=== PATIENT | female | born 1950 | race Caucasian/White ===

== ENCOUNTER 2016-05-27 15:08 | Inpatient (IN) | payer MEDICARE, OTHER ==
[~2016-05-27] VITALS: Ht 170.2 cm; Wt 78.8 kg
[2016-05-27] MEDS ORDERED: SODIUM CHLORIDE 0.9% 1,000 ML IV ONE (16:05)
[2016-05-27 17:08] LABS: Basophils # (auto) 0.1 uL; Basophils % (auto) 0.5 % (0.0-2.0); DEFINITIVE VIEW TRANSMISSION; Eosinophils # (auto) 0 uL; Eosinophils % (auto) 0.1 % (0.0-7.0); Hemoglobin 12.4 g/dL (12.2-16.2); Lymphocytes # (auto) 2.4 uL; Lymphocytes % (auto) 17.7 % (10.0-50.0); Mean Corpuscular Hgb Conc. 31.9 g/dL (32.0-36.0); Mean Corpuscular Volume 81.6 fL (80.0-100.0); Mean Platelet Volume 8.6 fL (7.4-10.4); Monocytes # (auto) 0.4 uL; Monocytes % (auto) 2.7 % (0.0-12.0); Neutrophils # (auto) 10.7 uL; Platelet Count (auto) 393 10^3/uL (140-450); Red Cell Distribution Width 23.5 % (11.6-16.0); White Blood Cell 13.5 10^3/uL (4.4-10.8)
[2016-05-27 17:21] LABS: Anisocytosis Moderate; Hypochromia Slight; Ovalocytes FEW; Platelet Estimate Adequate; Stomatocytes Moderate; Tear Drop Cells FEW
[2016-05-27 17:30] LABS: Albumin 0.4 g/dL (3.4-5.0); BUN/Creatinine Ratio 16.8; Bilirubin, Total 0.3 mg/dL (0.2-1.0); Calcium 6.2 mg/dL (8.5-10.1); Magnesium 2.3 mg/dL (1.6-2.6); Potassium 3.6 mmol/L (3.5-5.1); Total Protein 3.9 g/dL (6.4-8.2)
[2016-05-27 18:48] LABS: INR 1.14 (0.9-1.15); Prothrombin Time 11.7 sec (9.37-12.3)
[2016-05-27 20:24] LABS: Urine Bilirubin Negative (Negative); Urine Blood Negative /uL (Negative); Urine Color Yellow (Yellow); Urine Glucose Normal (Normal); Urine Ketone Negative (Negative); Urine Nitrite Negative (Negative); Urine RBC <1 /hpf (0 - 4)
[2016-05-27 20:31] LABS: Urine Hyaline Cast Moderate /lpf (0 - 2); Urine Mucus Few (None Seen); Urine Squamous Epithelial Cell Moderate /hpf (<5)
[2016-05-28] MEDS ORDERED: SODIUM CHLORIDE 0.9% 1,000 ML IV SCH (01:28)
[2016-05-28] MEDS ORDERED: DIPHENOXYLATE W/ATROPINE 2.5 MG TAB PO PRN (01:30)
[2016-05-28] MEDS ORDERED: ONDANSETRON HCL 4 MG/2 ML VIAL IV PRN (01:30)
[2016-05-28] MEDS ORDERED: ONDANSETRON HCL 4 MG/2 ML VIAL ONE (01:39)
[2016-05-28] MEDS ORDERED: ALBUMIN 25% 100 ML IV ONE (01:45)
[2016-05-28 02:25] VITALS: BP_SYST 119; BP_DIAS 60; BP_DIAS 66
[2016-05-28 05:26] VITALS: BP 106/57
[2016-05-28] MEDS ORDERED: PERCOT PO (05:26)
[2016-05-28] MEDS ORDERED: ASPI-378 PO (05:26)
[2016-05-28] MEDS ORDERED: LIDO5DIS21 TOP (05:26)
[2016-05-28] MEDS ORDERED: MONT5CHW17 PO (05:26)
[2016-05-28] MEDS ORDERED: DIPH2.5T73 PO (05:26)
[2016-05-28] MEDS ORDERED: EPIN1INJ26 IV (05:26)
[2016-05-28] MEDS ORDERED: ASPI-407 PO (05:26)
[2016-05-28] MEDS ORDERED: FLUT250M2 INH (05:26)
[2016-05-28] MEDS ORDERED: DILT180C62 PO (05:26)
[2016-05-28] MEDS ORDERED: DESL5TAB29 PO (05:26)
[2016-05-28] MEDS ORDERED: SUMA100T2 PO (05:26)
[2016-05-28] MEDS ORDERED: CEL100T PO (05:26)
[2016-05-28] MEDS ORDERED: [UNRECOGNIZED DRUG - CODE] IJ (05:26)
[2016-05-28] MEDS ORDERED: FEXO-42 PO (05:26)
[2016-05-28] MEDS ORDERED: [UNRECOGNIZED DRUG - CODE] IM (05:26)
[2016-05-28] MEDS ORDERED: GABA250S2 PO (05:26)
[2016-05-28] MEDS ORDERED: LANS15CA21 PO (05:26)
[2016-05-28] MEDS: GABAPENTIN 300 MG CAP PO SCH ×3 (06:01→22:38)
[2016-05-28 09:00] VITALS: BP 117/70
[2016-05-28] MEDS: MONTELUKAST SODIUM 10 MG TAB PO SCH (10:04)
[2016-05-28] MEDS: FAMOTIDINE 20 MG TAB PO SCH ×2 (10:05→22:37)
[2016-05-28] MEDS: DILTIAZEM HCL 180MG ER CAP PO SCH (10:05)
[2016-05-28] MEDS: ASPirin 81 mg TAB PO SCH (10:05)
[2016-05-28] MEDS: CELECOXIB 100 MG CAP PO SCH (10:05)
[2016-05-28] MEDS: ENOXAPARIN SOD 40 MG/0.4 ML SYRINGE SC SCH (10:06)
[2016-05-28] MEDS: ESTROGEN CONJ 0.3 MG TAB PO SCH (10:46)
[2016-05-28] MEDS: METHOCARBAMOL 500 MG TAB PO PRN ×2 (10:46→17:10)
[2016-05-28] MEDS: OXYCODONE W/ ACETAMINOPHEN 5/325MG TABLET PO PRN ×3 (10:49→20:59)
[2016-05-28 13:00] VITALS: BP 111/62
[2016-05-28] MEDS ORDERED: methylPREDNISolone SOD SUCC 125 MG/2 ML VL IM PRN (15:00)
[2016-05-28] MEDS ORDERED: diphenhdrAMINE HCL 50 MG/1 ML VL IV PRN (15:00)
[2016-05-28] MEDS: ALBUMIN 25% 100 ML IV SCH (16:00)
[2016-05-28 16:59] VITALS: BP 108/65
[2016-05-28 18:56] LABS: Temperature: 22.7 C (20.0-25.0)
[2016-05-28 21:55] VITALS: BP 115/66
[2016-05-29] MEDS: ALBUMIN 25% 100 ML IV SCH ×2 (00:25→09:24)
[2016-05-29 05:57] VITALS: BP 121/75
[2016-05-29 06:09] LABS: Albumin 2.4 g/dL (3.4-5.0); BUN/Creatinine Ratio 17.6; Calcium 6.7 mg/dL (8.5-10.1); Potassium 3.2 mmol/L (3.5-5.1)
[2016-05-29 06:12] LABS: Bilirubin, Total 0.6 mg/dL (0.2-1.0); Total Protein 4.3 g/dL (6.4-8.2)
[2016-05-29 06:17] LABS: Basophils # (auto) 0 uL; Basophils % (auto) 0.3 % (0.0-2.0); DEFINITIVE VIEW TRANSMISSION; Eosinophils # (auto) 0 uL; Hemoglobin 9.7 g/dL (12.2-16.2); Lymphocytes # (auto) 2.4 uL; Lymphocytes % (auto) 27.8 % (10.0-50.0); Mean Corpuscular Hemoglobin 26.1 pg (28.0-32.0); Mean Corpuscular Hgb Conc. 31.3 g/dL (32.0-36.0); Mean Corpuscular Volume 83.3 fL (80.0-100.0); Mean Platelet Volume 8.8 fL (7.4-10.4); Monocytes # (auto) 0.3 uL; Monocytes % (auto) 3.8 % (0.0-12.0); Neutrophils # (auto) 5.8 uL; Neutrophils % (auto) 68.1 % (37.0-80.0); Platelet Count (auto) 189 10^3/uL (140-450); White Blood Cell 8.5 10^3/uL (4.4-10.8)
[2016-05-29 06:21] LABS: Red Cell Distribution Width 22.9 % (11.6-16.0)
[2016-05-29 06:23] LABS: Anisocytosis Moderate; Hypochromia Slight; Platelet Estimate Adequate
[2016-05-29 06:24] LABS: Tear Drop Cells FEW
[2016-05-29 09:00] VITALS: BP 126/71
[2016-05-29] MEDS: ENOXAPARIN SOD 40 MG/0.4 ML SYRINGE SC SCH (09:24)
[2016-05-29] MEDS: CELECOXIB 100 MG CAP PO SCH (09:25)
[2016-05-29] MEDS: MONTELUKAST SODIUM 10 MG TAB PO SCH (09:25)
[2016-05-29] MEDS: FAMOTIDINE 20 MG TAB PO SCH ×2 (09:25→22:26)
[2016-05-29] MEDS: ASPirin 81 mg TAB PO SCH (09:25)
[2016-05-29] MEDS: DILTIAZEM HCL 180MG ER CAP PO SCH (09:33)
[2016-05-29] MEDS: ESTROGEN CONJ 0.3 MG TAB PO SCH (10:00)
[2016-05-29 13:00] VITALS: BP_SYST 122; BP_SYST 129; BP_DIAS 58; BP_DIAS 75
[2016-05-29 13:26] LABS: BUN/Creatinine Ratio 16.7; Calcium 6.9 mg/dL (8.5-10.1)
[2016-05-29] MEDS ORDERED: POTASSIUM CHL 20 Meq TABLET PO ONE (14:00)
[2016-05-29] MEDS ORDERED: LACTULOSE 20Gm/30ML SOLN PO ONE (14:00)
[2016-05-29] MEDS: D5W 5% 1,000 ML IV SCH (14:34)
[2016-05-29] MEDS: GABAPENTIN 300 MG CAP PO SCH ×2 (14:34→22:26)
[2016-05-29] MEDS: PROMETHAZINE HCL 25 MG/ML 1ML IV PRN (14:58)
[2016-05-29] MEDS ORDERED: POTASSIUM CHLORIDE 20 MEQ, LIDOCAINE 1% (LOCAL ANESTH.) 2 ML in SODIUM CHL 0.9% 100 ML IV ONE (15:00)
[2016-05-29 17:00] VITALS: BP 122/58
[2016-05-29 22:02] VITALS: BP 135/68
[2016-05-29] MEDS: LACTULOSE 20Gm/30ML SOLN PO SCH (22:26)
[2016-05-30] MEDS: D5W 5% 1,000 ML IV SCH ×3 (01:44→20:59)
[2016-05-30 05:34] VITALS: BP 105/64
[2016-05-30] MEDS: GABAPENTIN 300 MG CAP PO SCH ×3 (06:30→22:38)
[2016-05-30 09:00] VITALS: BP 129/73
[2016-05-30] MEDS: ESTROGEN CONJ 0.3 MG TAB PO SCH (10:00)
[2016-05-30] MEDS: LACTULOSE 20Gm/30ML SOLN PO SCH (10:00)
[2016-05-30] MEDS: CELECOXIB 100 MG CAP PO SCH (11:06)
[2016-05-30] MEDS: MONTELUKAST SODIUM 10 MG TAB PO SCH (11:07)
[2016-05-30] MEDS: ASPirin 81 mg TAB PO SCH (11:07)
[2016-05-30] MEDS: DILTIAZEM HCL 180MG ER CAP PO SCH (11:08)
[2016-05-30] MEDS: ENOXAPARIN SOD 40 MG/0.4 ML SYRINGE SC SCH (11:09)
[2016-05-30] MEDS: FAMOTIDINE 20 MG TAB PO SCH ×2 (11:09→22:38)
[2016-05-30 13:00] VITALS: BP 147/80
[2016-05-30 13:07] LABS: Sjogren's Anti-SS-A Antibody <0.2 AI (0.0-0.9)
[2016-05-30 13:31] LABS: BUN/Creatinine Ratio 7.1; Calcium 7.2 mg/dL (8.5-10.1); Potassium 3.3 mmol/L (3.5-5.1)
[2016-05-30] MEDS: FREE WATER PO SCH ×3 (14:00→22:00)
[2016-05-30] MEDS ORDERED: POTASSIUM CHL 20 Meq TABLET PO ONE (14:30)
[2016-05-30] MEDS ORDERED: POTASSIUM PHOSPHATE 44 MEQ in SODIUM CHL 0.9% 250 ML IV ONE (16:15)
[2016-05-30 16:50] VITALS: BP 135/76
[2016-05-30] MEDS ORDERED: ACETAMINOPHEN 325 MG TAB PO PRN (19:00)
[2016-05-30 21:00] VITALS: BP 128/94
[2016-05-30] MEDS: OXYCODONE W/ ACETAMINOPHEN 5/325MG TABLET PO PRN (22:38)
[2016-05-31] VITALS (7 sets, daily range): BP systolic 122–141; BP diastolic 69–85
[2016-05-31] MEDS: FREE WATER PO SCH ×4 (02:00→17:40)
[2016-05-31] MEDS: D5W 5% 1,000 ML IV SCH (05:48)
[2016-05-31] MEDS: GABAPENTIN 300 MG CAP PO SCH ×3 (06:13→22:26)
[2016-05-31 06:25] LABS: Basophils % (auto) 0.8 % (0.0-2.0); DEFINITIVE VIEW TRANSMISSION; Eosinophils # (auto) 0 uL; Mean Platelet Volume 8.8 fL (7.4-10.4)
[2016-05-31] MEDS ORDERED: IPRATROPIUM BROM 0.5 MG/2.5ML INH SOL ONE (06:26)
[2016-05-31] MEDS ORDERED: ALBUTEROL SULF 2.5 MG/0.5ML(0.5%) NEB SOLN ONE (06:26)
[2016-05-31 06:27] LABS: Basophils # (auto) 0.2 uL; Hematocrit 33.8 % (36.0-46.0); Lymphocytes # (auto) 4.6 uL; Lymphocytes % (auto) 23.1 % (10.0-50.0); Mean Corpuscular Hemoglobin 26.4 pg (28.0-32.0); Mean Corpuscular Hgb Conc. 32.5 g/dL (32.0-36.0); Mean Corpuscular Volume 81.3 fL (80.0-100.0); Monocytes # (auto) 0.8 uL; Monocytes % (auto) 4.1 % (0.0-12.0); Neutrophils # (auto) 14.2 uL; Platelet Count (auto) 329 10^3/uL (140-450); White Blood Cell 19.7 10^3/uL (4.4-10.8)
[2016-05-31 06:29] LABS: Red Cell Distribution Width 22.7 % (11.6-16.0)
[2016-05-31] MEDS ORDERED: methylPREDNISolone SOD SUCC 125 MG/2 ML VL IM ONE (06:30)
[2016-05-31 06:46] LABS: Calcium 7.5 mg/dL (8.5-10.1); Potassium 4.2 mmol/L (3.5-5.1)
[2016-05-31 08:40] LABS: Hypochromia Slight
[2016-05-31 08:41] LABS: Anisocytosis Moderate; Platelet Estimate Adequate; Stomatocytes Few
[2016-05-31] MEDS: OXYCODONE W/ ACETAMINOPHEN 5/325MG TABLET PO PRN (08:52)
[2016-05-31] MEDS ORDERED: FUROSEMIDE 100 MG/10ML VIAL IV ONE (09:30)
[2016-05-31] MEDS ORDERED: POTASSIUM CHL 20 Meq TABLET PO ONE (09:30)
[2016-05-31] MEDS ORDERED: OXYCODONE W/ ACETAMINOPHEN 5/325MG TABLET PO PRN (09:30)
[2016-05-31] MEDS ORDERED: ALBUMIN 25% 100 ML IV ONE (09:30)
[2016-05-31] MEDS ORDERED: LEVOFLOXACIN 750MG 150 ML IV SCH ×3 (10:00→12:00)
[2016-05-31] MEDS: CELECOXIB 100 MG CAP PO SCH (10:26)
[2016-05-31] MEDS: DILTIAZEM HCL 180MG ER CAP PO SCH (10:27)
[2016-05-31] MEDS: ASPirin 81 mg TAB PO SCH (10:28)
[2016-05-31] MEDS: MONTELUKAST SODIUM 10 MG TAB PO SCH (10:28)
[2016-05-31] MEDS: FAMOTIDINE 20 MG TAB PO SCH ×2 (10:28→22:26)
[2016-05-31] MEDS: ENOXAPARIN SOD 40 MG/0.4 ML SYRINGE SC SCH (10:29)
[2016-05-31] MEDS ORDERED: LIDOCAINE 1% HCL (LOCAL ANESTH.) INJ 20ML MDV ID ONE (11:45)
[2016-05-31] MEDS: ALBUTEROL SULF 2.5 MG/0.5ML(0.5%) NEB SOLN NEB SCH ×2 (12:20→19:16)
[2016-05-31] MEDS: IPRATROPIUM BROM 0.5 MG/2.5ML INH SOL NEB SCH ×2 (12:20→19:17)
[2016-05-31] MEDS: ESTROGEN CONJ 0.3 MG TAB PO SCH (12:28)
[2016-05-31] MEDS ORDERED: TPN PER PHARMACY 0 ML IV SCH (14:45)
[2016-05-31] MEDS ORDERED: ALPRAZolam 0.5 MG TAB PO PRN (15:00)
[2016-05-31] MEDS ORDERED: HALOPERIDOL LACTATE 5 MG/ML INJ VIAL IV PRN (15:00)
[2016-05-31 16:47] LABS: Magnesium 2.1 mg/dL (1.6-2.6); Phosphorus 3.3 mg/dL (2.6-4.90)
[2016-05-31] MEDS: DOXYCYCLINE HYC 100MG/250ML 250 ML IV SCH (17:40)
[2016-05-31] MEDS: SODIUM CHLOR 0.9% PF (SALINE LOCK) 10ML VIAL IV SCH (19:51)
[2016-05-31] MEDS ORDERED: CLINIMIX PER PHARMACY IV NR ×6 (20:00)
[2016-05-31] MEDS: PROMETHAZINE HCL 25 MG/ML 1ML IV PRN (22:27)
[2016-06-01] VITALS (72 sets, daily range): BP systolic 111–190; BP diastolic 53–107
[2016-06-01] MEDS ORDERED: SUCCINYLCHOLINE CHLORIDE 20 MG/ML 10ML VIAL IV ONE (02:12)
[2016-06-01] MEDS ORDERED: ETOMIDATE (2MG/ML) 20ML VIAL IV ONE (02:12)
[2016-06-01] MEDS ORDERED: MIDAZOLAM DRIP 100 mg/100mL NS 100 ML IV ONE ×2 (02:12→11:07)
[2016-06-01] MEDS: PROPOFOL 100 ML IV SCH (03:15)
[2016-06-01 03:51] LABS: DEFINITIVE VIEW TRANSMISSION; Hematocrit 32.8 % (36.0-46.0); Hemoglobin 10.2 g/dL (12.2-16.2); Mean Corpuscular Hemoglobin 26.1 pg (28.0-32.0); Mean Corpuscular Volume 84.3 fL (80.0-100.0); Mean Platelet Volume 9.4 fL (7.4-10.4); Platelet Count (auto) 357 10^3/uL (140-450); SUSPECT VIEW TRANSMISSION; White Blood Cell 20.9 10^3/uL (4.4-10.8)
[2016-06-01 04:13] LABS: Albumin 2.5 g/dL (3.4-5.0); BUN/Creatinine Ratio 15.2; Bilirubin, Total 0.6 mg/dL (0.2-1.0); Magnesium 2.5 mg/dL (1.6-2.6); Phosphorus 4.2 mg/dL (2.6-4.90); Potassium 5.3 mmol/L (3.5-5.1); Total Protein 4.7 g/dL (6.4-8.2)
[2016-06-01 04:20] LABS: Metamyelocytes % 0; Promyelocytes % 0; Reactive Lymphocytes 0
[2016-06-01] MEDS ORDERED: SODIUM BICARBONATE 8.4% INJ 50ML SYRINGE ONE (04:41)
[2016-06-01] MEDS: DOXYCYCLINE HYC 100MG/250ML 250 ML IV SCH (05:00)
[2016-06-01] MEDS ORDERED: SODIUM BICARBONATE 8.4 % INJ 50ML VIAL IV ONE (05:00)
[2016-06-01 05:06] LABS: Myelocytes % 1
[2016-06-01 05:07] LABS: Anisocytosis Moderate; Hypersegmented Neutrophils Present; Hypochromia Slight; Platelet Estimate Adequate
[2016-06-01] MEDS: FREE WATER PO SCH ×4 (06:00→17:34)
[2016-06-01] MEDS: GABAPENTIN 300 MG CAP PO SCH ×3 (06:00→22:21)
[2016-06-01] MEDS: IPRATROPIUM BROM 0.5 MG/2.5ML INH SOL NEB SCH ×3 (06:17→18:19)
[2016-06-01] MEDS: ALBUTEROL SULF 2.5 MG/0.5ML(0.5%) NEB SOLN NEB SCH ×3 (06:17→18:19)
[2016-06-01 06:44] LABS: Lactic Acid 3.4 mmol/L (0.4-2.0)
[2016-06-01 06:50] LABS: REFLEX LACTIC ACID YES OR NO YES
[2016-06-01] MEDS ORDERED: VANCOMYCIN PER PHARMACY 0 MG IV SCH ×2 (07:15→08:30)
[2016-06-01] MEDS ORDERED: cefTRIAXone 1GM/50ML D5W 50 ML IV SCH (07:15)
[2016-06-01] MEDS ORDERED: VANCOMYCIN 1GM/250ML D5W 250 ML IV ONE (07:15)
[2016-06-01] MEDS ORDERED: PIPERACILLIN-TAZOB 3.375GM 100 ML IV SCH (07:15)
[2016-06-01] MEDS ORDERED: DEXTROSE (50%) 50ML SYRG IV SCH (08:00)
[2016-06-01 09:16] LABS: Lactic Acid 2.5 mmol/L (0.4-2.0)
[2016-06-01 09:18] LABS: REFLEX LACTIC ACID YES OR NO NO
[2016-06-01 09:18] LABS: B-Type Natriuretic Peptide 3073.91 pg/mL (0-100); Temperature: 22.7 C (20.0-25.0)
[2016-06-01] MEDS ORDERED: FUROSEMIDE 40 MG/4 ML VIAL IV SCH (10:00)
[2016-06-01] MEDS ORDERED: methylPREDNISolone SOD SUCC 125 MG/2 ML VL IM SCH (10:00)
[2016-06-01] MEDS: SODIUM CHLOR 0.9% PF (SALINE LOCK) 10ML VIAL IV SCH ×2 (10:00→22:21)
[2016-06-01] MEDS: VANCOMYCIN 750 MG in D5W 5% 250 ML IV SCH ×2 (11:16→22:21)
[2016-06-01] MEDS: PANTOPRAZOLE SODIUM 40 MG/10 ML VIAL IV SCH (11:17)
[2016-06-01] MEDS: LEVOFLOXACIN 750MG 150 ML IV SCH (11:17)
[2016-06-01] MEDS: ASPirin 81 mg TAB PO SCH (11:17)
[2016-06-01] MEDS: ENOXAPARIN SOD 40 MG/0.4 ML SYRINGE SC SCH (11:18)
[2016-06-01] MEDS: DILTIAZEM HCL 180MG ER CAP PO SCH (11:18)
[2016-06-01] MEDS: ACCU-CHEK COMFORT CURVE STRIP VI SCH ×2 (13:00→18:06)
[2016-06-01] MEDS: InsuLIN REG 1unit/0.01ml Soln (100units/ml) SC SCH ×2 (13:00→18:08)
[2016-06-01] MEDS: FUROSEMIDE 40 MG/4 ML VIAL IV SCH (18:10)
[2016-06-01] MEDS: TPN PER PHARMACY IV SCH ×8 (20:03)
[2016-06-01] MEDS: MIDAZOLAM DRIP 100 mg/100mL NS 100 ML IV PRN (20:18)
[2016-06-02] VITALS (104 sets, daily range): BP systolic 105–146; BP diastolic 42–74
[2016-06-02] MEDS: IPRATROPIUM BROM 0.5 MG/2.5ML INH SOL NEB SCH ×5 (00:31→23:33)
[2016-06-02] MEDS: ALBUTEROL SULF 2.5 MG/0.5ML(0.5%) NEB SOLN NEB SCH ×5 (00:31→23:33)
[2016-06-02] MEDS: PROPOFOL 100 ML IV SCH (03:15)
[2016-06-02] MEDS: GABAPENTIN 300 MG CAP PO SCH ×3 (06:13→21:55)
[2016-06-02] MEDS: FUROSEMIDE 40 MG/4 ML VIAL IV SCH ×2 (06:13→18:11)
[2016-06-02] MEDS: ACCU-CHEK COMFORT CURVE STRIP VI SCH ×5 (06:13→23:49)
[2016-06-02] MEDS: FREE WATER PO SCH ×5 (06:13→23:48)
[2016-06-02] MEDS: InsuLIN REG 1unit/0.01ml Soln (100units/ml) SC SCH ×5 (06:18→23:50)
[2016-06-02] MEDS: MIDAZOLAM DRIP 100 mg/100mL NS 100 ML IV PRN ×2 (06:21→15:08)
[2016-06-02 07:00] LABS: Basophils # (auto) 0 uL; Basophils % (auto) 0.2 % (0.0-2.0); DEFINITIVE VIEW TRANSMISSION; Eosinophils # (auto) 0 uL; Eosinophils % (auto) 0.1 % (0.0-7.0); Hematocrit 26.7 % (36.0-46.0); Hemoglobin 8.6 g/dL (12.2-16.2); Lymphocytes # (auto) 2.4 uL; Lymphocytes % (auto) 17.4 % (10.0-50.0); Mean Corpuscular Hemoglobin 26.6 pg (28.0-32.0); Mean Platelet Volume 9.1 fL (7.4-10.4); Monocytes # (auto) 0.5 uL; Monocytes % (auto) 3.4 % (0.0-12.0); Neutrophils # (auto) 10.8 uL; Neutrophils % (auto) 78.9 % (37.0-80.0); Platelet Count (auto) 272 10^3/uL (140-450); Red Cell Distribution Width 21.9 % (11.6-16.0); White Blood Cell 13.6 10^3/uL (4.4-10.8)
[2016-06-02 07:03] LABS: Anisocytosis Moderate; Hypochromia Slight; Platelet Estimate Adequate
[2016-06-02 07:13] LABS: Albumin 1.8 g/dL (3.4-5.0); BUN/Creatinine Ratio 27.4; Bilirubin, Total 0.3 mg/dL (0.2-1.0); Calcium 7.6 mg/dL (8.5-10.1); Magnesium 2.5 mg/dL (1.6-2.6); Phosphorus 2.4 mg/dL (2.6-4.90); Potassium 3.2 mmol/L (3.5-5.1); Total Protein 4.1 g/dL (6.4-8.2)
[2016-06-02] MEDS ORDERED: POTASSIUM CHL 10% (20 MEQ/15ML) ORAL SOLN GT ONE (08:30)
[2016-06-02] MEDS: LEVOFLOXACIN 750MG 150 ML IV SCH (09:35)
[2016-06-02] MEDS: PANTOPRAZOLE SODIUM 40 MG/10 ML VIAL IV SCH (09:36)
[2016-06-02] MEDS: DILTIAZEM HCL 180MG ER CAP PO SCH (09:37)
[2016-06-02] MEDS: ASPirin 81 mg TAB PO SCH (09:37)
[2016-06-02] MEDS: ENOXAPARIN SOD 40 MG/0.4 ML SYRINGE SC SCH (09:37)
[2016-06-02] MEDS: SODIUM CHLOR 0.9% PF (SALINE LOCK) 10ML VIAL IV SCH ×2 (09:37→21:55)
[2016-06-02] MEDS: VANCOMYCIN 750 MG in D5W 5% 250 ML IV SCH ×2 (11:00→23:37)
[2016-06-02] MEDS ORDERED: MORPHINE SULF INJ 2 MG/ML SYRINGE 1ML IV PRN (13:30)
[2016-06-02] MEDS: PRO-STAT 64 30ML NG SCH (18:12)
[2016-06-02] MEDS ORDERED: TPN PER PHARMACY IV SCH ×9 (20:00)
[2016-06-02] MEDS: TPN PER PHARMACY IV SCH ×8 (20:00)
[2016-06-03] VITALS (103 sets, daily range): BP systolic 95–130; BP diastolic 40–98
[2016-06-03] MEDS: MIDAZOLAM DRIP 100 mg/100mL NS 100 ML IV PRN ×2 (02:19→10:49)
[2016-06-03] MEDS: PROPOFOL 100 ML IV SCH (03:15)
[2016-06-03 05:28] LABS: Basophils # (auto) 0.3 uL; Basophils % (auto) 1.8 % (0.0-2.0); DEFINITIVE VIEW TRANSMISSION; Eosinophils # (auto) 0.1 uL; Eosinophils % (auto) 0.7 % (0.0-7.0); Hematocrit 26.6 % (36.0-46.0); Hemoglobin 8.5 g/dL (12.2-16.2); Lymphocytes # (auto) 3.2 uL; Lymphocytes % (auto) 22.2 % (10.0-50.0); Mean Corpuscular Hgb Conc. 32.1 g/dL (32.0-36.0); Mean Corpuscular Volume 84.1 fL (80.0-100.0); Mean Platelet Volume 8.6 fL (7.4-10.4); Monocytes # (auto) 0.6 uL; Monocytes % (auto) 3.9 % (0.0-12.0); Neutrophils # (auto) 10.2 uL; Neutrophils % (auto) 71.4 % (37.0-80.0); Platelet Count (auto) 294 10^3/uL (140-450); Red Cell Distribution Width 21.4 % (11.6-16.0); White Blood Cell 14.4 10^3/uL (4.4-10.8)
[2016-06-03 05:40] LABS: Anisocytosis Moderate; Platelet Estimate Adequate
[2016-06-03 05:49] LABS: Albumin 1.7 g/dL (3.4-5.0); BUN/Creatinine Ratio 26.8; Bilirubin, Total 0.5 mg/dL (0.2-1.0); Calcium 7.2 mg/dL (8.5-10.1); Phosphorus 1.8 mg/dL (2.6-4.90); Total Protein 3.9 g/dL (6.4-8.2)
[2016-06-03] MEDS ORDERED: SODIUM PHOSPHATES 20 MEQ in SODIUM CHL 0.9% 100 ML IV ONE (06:00)
[2016-06-03] MEDS: InsuLIN REG 1unit/0.01ml Soln (100units/ml) SC SCH ×3 (06:00→18:00)
[2016-06-03] MEDS: FUROSEMIDE 40 MG/4 ML VIAL IV SCH (06:08)
[2016-06-03] MEDS: FREE WATER PO SCH ×3 (06:08→17:53)
[2016-06-03] MEDS: ACCU-CHEK COMFORT CURVE STRIP VI SCH ×3 (06:09→18:00)
[2016-06-03] MEDS: GABAPENTIN 300 MG CAP PO SCH ×3 (06:15→22:00)
[2016-06-03] MEDS: IPRATROPIUM BROM 0.5 MG/2.5ML INH SOL NEB SCH ×3 (06:38→19:06)
[2016-06-03] MEDS: ALBUTEROL SULF 2.5 MG/0.5ML(0.5%) NEB SOLN NEB SCH ×3 (06:38→19:06)
[2016-06-03] MEDS: PRO-STAT 64 30ML NG SCH ×3 (08:00→17:53)
[2016-06-03] MEDS: LEVOFLOXACIN 750MG 150 ML IV SCH (09:36)
[2016-06-03] MEDS: PANTOPRAZOLE SODIUM 40 MG/10 ML VIAL IV SCH (10:00)
[2016-06-03] MEDS: ENOXAPARIN SOD 40 MG/0.4 ML SYRINGE SC SCH (10:00)
[2016-06-03] MEDS: ASPirin 81 mg TAB PO SCH (10:00)
[2016-06-03] MEDS: DILTIAZEM HCL 180MG ER CAP PO SCH (10:00)
[2016-06-03] MEDS: SODIUM CHLOR 0.9% PF (SALINE LOCK) 10ML VIAL IV SCH ×2 (10:00→22:00)
[2016-06-03] MEDS: VANCOMYCIN 750 MG in D5W 5% 250 ML IV SCH ×2 (11:00→23:03)
[2016-06-03] MEDS: fentaNYL Drip 2500mCg/250mlNS 250 ML IV SCH (11:39)
[2016-06-03] MEDS ORDERED: Fibersource Hn 1 Liter GT SCH (11:45)
[2016-06-03] MEDS ORDERED: [UNRECOGNIZED DRUG - OTHER] IV NR ×10 (20:00)
[2016-06-03] MEDS ORDERED: TPN PER PHARMACY IV NR ×10 (20:00)
[2016-06-03] MEDS ORDERED: POTASSIUM PHOSPHATE IV NR ×10 (20:00)
[2016-06-03] MEDS ORDERED: POTASSIUM ACETATE IV NR ×10 (20:00)
[2016-06-03] MEDS ORDERED: POTASSIUM CHLORIDE IV NR ×10 (20:00)
[2016-06-03] MEDS ORDERED: IBUPROFEN 100MG/5ML ORAL SUSP 100 MG/5 ML UD PO PRN (21:30)
[2016-06-03] MEDS ORDERED: IBUPROFEN 100MG/5ML ORAL SUSP 100 MG/5 ML UD ONE ×2 (22:41)
[2016-06-03] MEDS: IBUPROFEN 100MG/5ML ORAL SUSP 100 MG/5 ML UD NG PRN (22:52)
[2016-06-04] VITALS (113 sets, daily range): BP systolic 95–149; BP diastolic 42–78
[2016-06-04] MEDS: InsuLIN REG 1unit/0.01ml Soln (100units/ml) SC SCH ×4 (00:19→18:00)
[2016-06-04] MEDS: FREE WATER PO SCH ×4 (00:22→18:06)
[2016-06-04] MEDS: ALBUTEROL SULF 2.5 MG/0.5ML(0.5%) NEB SOLN NEB SCH ×4 (00:22→18:42)
[2016-06-04] MEDS: IPRATROPIUM BROM 0.5 MG/2.5ML INH SOL NEB SCH ×4 (00:22→18:42)
[2016-06-04] MEDS: ACCU-CHEK COMFORT CURVE STRIP VI SCH ×4 (00:22→18:05)
[2016-06-04] MEDS: PROPOFOL 100 ML IV SCH (03:15)
[2016-06-04 04:07] LABS: Basophils # (auto) 0 uL; Basophils % (auto) 0.2 % (0.0-2.0); DEFINITIVE VIEW TRANSMISSION; Eosinophils # (auto) 0 uL; Hematocrit 24.4 % (36.0-46.0); Hemoglobin 7.7 g/dL (12.2-16.2); Lymphocytes # (auto) 3.1 uL; Lymphocytes % (auto) 19.2 % (10.0-50.0); Mean Corpuscular Hemoglobin 26.7 pg (28.0-32.0); Mean Corpuscular Hgb Conc. 31.4 g/dL (32.0-36.0); Mean Corpuscular Volume 84.9 fL (80.0-100.0); Mean Platelet Volume 8.6 fL (7.4-10.4); Monocytes # (auto) 0.4 uL; Monocytes % (auto) 2.6 % (0.0-12.0); Neutrophils # (auto) 12.4 uL; Platelet Count (auto) 310 10^3/uL (140-450); SUSPECT VIEW TRANSMISSION; White Blood Cell 15.9 10^3/uL (4.4-10.8)
[2016-06-04 04:11] LABS: Red Cell Distribution Width 20.8 % (11.6-16.0)
[2016-06-04 04:23] LABS: Albumin 1.5 g/dL (3.4-5.0); BUN/Creatinine Ratio 44.4; Bilirubin, Total 0.5 mg/dL (0.2-1.0); Calcium 7.3 mg/dL (8.5-10.1); Magnesium 1.8 mg/dL (1.6-2.6); Phosphorus 3.5 mg/dL (2.6-4.90); Potassium 4.1 mmol/L (3.5-5.1); Total Protein 4.5 g/dL (6.4-8.2)
[2016-06-04 04:28] LABS: Anisocytosis Moderate; Platelet Estimate Adequate
[2016-06-04] MEDS: GABAPENTIN 300 MG CAP PO SCH ×3 (05:36→22:11)
[2016-06-04] MEDS: fentaNYL Drip 2500mCg/250mlNS 250 ML IV SCH (07:00)
[2016-06-04] MEDS: PRO-STAT 64 30ML NG SCH ×3 (07:51→18:06)
[2016-06-04 09:14] LABS: Hematocrit 23.7 % (36.0-46.0); Hemoglobin 7.5 g/dL (12.2-16.2)
[2016-06-04] MEDS: PANTOPRAZOLE SODIUM 40 MG/10 ML VIAL IV SCH (09:35)
[2016-06-04] MEDS: SODIUM CHLOR 0.9% PF (SALINE LOCK) 10ML VIAL IV SCH ×2 (09:36→22:11)
[2016-06-04] MEDS: LEVOFLOXACIN 750MG 150 ML IV SCH (09:36)
[2016-06-04] MEDS: DILTIAZEM HCL 180MG ER CAP PO SCH (09:36)
[2016-06-04] MEDS: ASPirin 81 mg TAB PO SCH (09:36)
[2016-06-04] MEDS: ENOXAPARIN SOD 40 MG/0.4 ML SYRINGE SC SCH (10:00)
[2016-06-04] MEDS ORDERED: FUROSEMIDE 40 MG/4 ML VIAL IV SCH (10:00)
[2016-06-04] MEDS: VANCOMYCIN 1GM/250ML D5W 250 ML IV SCH ×2 (11:02→22:58)
[2016-06-04] MEDS: MEROPENEM 1GM IVPB 100 ML IV SCH ×2 (14:00→22:11)
[2016-06-04] MEDS ORDERED: TPN PER PHARMACY IV NR ×9 (20:00)
[2016-06-04] MEDS: FUROSEMIDE 40 MG/4 ML VIAL IV SCH (22:11)
[2016-06-04] MEDS: MIDAZOLAM HCL 1MG/1ML-2 ML VIAL IV PRN (23:20)
[2016-06-04] MEDS: MIDAZOLAM DRIP 100 mg/100mL NS 100 ML IV PRN (23:45)
[2016-06-05] VITALS (102 sets, daily range): BP systolic 95–140; BP diastolic 42–81
[2016-06-05] MEDS: FREE WATER PO SCH ×4 (00:36→18:05)
[2016-06-05] MEDS: PROPOFOL 100 ML IV SCH ×2 (03:15→19:30)
[2016-06-05 04:00] LABS: Albumin 1.4 g/dL (3.4-5.0); Calcium 7.3 mg/dL (8.5-10.1); Magnesium 1.8 mg/dL (1.6-2.6)
[2016-06-05 04:02] LABS: Basophils # (auto) 0 uL; Eosinophils # (auto) 0.1 uL; Eosinophils % (auto) 0.3 % (0.0-7.0); Hematocrit 31.1 % (36.0-46.0); Hemoglobin 9.9 g/dL (12.2-16.2); Lymphocytes # (auto) 1.4 uL; Lymphocytes % (auto) 8.5 % (10.0-50.0); Mean Corpuscular Hemoglobin 27.8 pg (28.0-32.0); Mean Platelet Volume 8.2 fL (7.4-10.4); Monocytes # (auto) 0.7 uL; Monocytes % (auto) 4.6 % (0.0-12.0); Neutrophils # (auto) 13.8 uL; Neutrophils % (auto) 86.6 % (37.0-80.0); Platelet Count (auto) 335 10^3/uL (140-450); Red Cell Distribution Width 17.7 % (11.6-16.0)
[2016-06-05 04:05] LABS: BUN/Creatinine Ratio 37.7
[2016-06-05 04:11] LABS: Bilirubin, Total 0.8 mg/dL (0.2-1.0); Total Protein 4.9 g/dL (6.4-8.2)
[2016-06-05 04:28] LABS: Phosphorus 3.7 mg/dL (2.6-4.90)
[2016-06-05] MEDS: ALBUTEROL SULF 2.5 MG/0.5ML(0.5%) NEB SOLN NEB SCH ×4 (05:56→18:37)
[2016-06-05] MEDS: IPRATROPIUM BROM 0.5 MG/2.5ML INH SOL NEB SCH ×4 (05:56→18:37)
[2016-06-05] MEDS: ACCU-CHEK COMFORT CURVE STRIP VI SCH ×4 (06:04→18:00)
[2016-06-05] MEDS: FUROSEMIDE 40 MG/4 ML VIAL IV SCH ×2 (06:04→18:24)
[2016-06-05] MEDS: GABAPENTIN 300 MG CAP PO SCH ×3 (06:04→22:24)
[2016-06-05] MEDS: MEROPENEM 1GM IVPB 100 ML IV SCH ×3 (06:04→22:24)
[2016-06-05] MEDS: InsuLIN REG 1unit/0.01ml Soln (100units/ml) SC SCH ×4 (06:05→18:08)
[2016-06-05] MEDS: PRO-STAT 64 30ML NG SCH ×3 (08:13→18:05)
[2016-06-05] MEDS: fentaNYL Drip 2500mCg/250mlNS 250 ML IV SCH ×2 (08:30→19:25)
[2016-06-05] MEDS ORDERED: SODIUM CHLORIDE LOCK 0 ML ONE (08:36)
[2016-06-05] MEDS ORDERED: LIDOCAINE HCL 2% TOP JELLY 5ML TOP ONE (08:36)
[2016-06-05] MEDS ORDERED: MIDAZOLAM HCL 5 MG/ML-1ML VIAL ONE (08:36)
[2016-06-05] MEDS ORDERED: LIDOCAINE 2%HCL (LOCAL ANESTH.) INJ 20ML MDV ONE (08:36)
[2016-06-05] MEDS ORDERED: EPINEPHrine HCL 1 MG/1 ML AMP ONE (08:36)
[2016-06-05] MEDS ORDERED: fentaNYL CITRATE 100 MCG/2 ML VL ONE (08:37)
[2016-06-05] MEDS ORDERED: ACETYLCYSTEINE 20%(200MG/ML) SOL 4ML ONE (09:45)
[2016-06-05 09:49] LABS: Partial Thromboplastin Time 36.9 sec (22.64-33.71)
[2016-06-05 09:51] LABS: INR 1.31 (0.9-1.15); Prothrombin Time 13.5 sec (9.37-12.3)
[2016-06-05] MEDS: DILTIAZEM HCL 180MG ER CAP PO SCH (10:00)
[2016-06-05] MEDS: ASPirin 81 mg TAB PO SCH (10:00)
[2016-06-05] MEDS: SODIUM CHLOR 0.9% PF (SALINE LOCK) 10ML VIAL IV SCH ×2 (10:00→22:24)
[2016-06-05] MEDS: PANTOPRAZOLE SODIUM 40 MG/10 ML VIAL IV SCH (10:00)
[2016-06-05] MEDS: LEVOFLOXACIN 750MG 150 ML IV SCH (10:00)
[2016-06-05] MEDS: ENOXAPARIN SOD 40 MG/0.4 ML SYRINGE SC SCH (10:00)
[2016-06-05] MEDS: VANCOMYCIN 1GM/250ML D5W 250 ML IV SCH ×2 (11:00→23:00)
[2016-06-05] MEDS: METOCLOPRAMIDE HCL 5MG/ml INJ 2ml VIAL IV SCH ×2 (13:48→22:24)
[2016-06-05] MEDS: MIDAZOLAM HCL 1MG/1ML-2 ML VIAL IV PRN (18:45)
[2016-06-05] MEDS ORDERED: PROPOFOL 100 ML IV ONE (19:30)
[2016-06-05] MEDS ORDERED: TPN PER PHARMACY IV NR ×10 (20:00)
[2016-06-05] MEDS: Fibersource Hn 1 Liter GT SCH (20:53)
[2016-06-06] VITALS (98 sets, daily range): BP systolic 90–134; BP diastolic 41–69
[2016-06-06] MEDS: ACCU-CHEK COMFORT CURVE STRIP VI SCH ×4 (00:14→17:43)
[2016-06-06] MEDS: InsuLIN REG 1unit/0.01ml Soln (100units/ml) SC SCH ×4 (00:16→17:40)
[2016-06-06] MEDS: FREE WATER PO SCH ×4 (00:16→17:37)
[2016-06-06] MEDS: PROPOFOL 100 ML IV SCH ×3 (03:29→17:43)
[2016-06-06 04:04] LABS: Basophils # (auto) 0 uL; Basophils % (auto) 0.1 % (0.0-2.0); Eosinophils # (auto) 0 uL; Hematocrit 29.9 % (36.0-46.0); Hemoglobin 9.6 g/dL (12.2-16.2); Lymphocytes % (auto) 5.6 % (10.0-50.0); Mean Corpuscular Hemoglobin 28.4 pg (28.0-32.0); Mean Corpuscular Hgb Conc. 32.1 g/dL (32.0-36.0); Mean Corpuscular Volume 88.5 fL (80.0-100.0); Mean Platelet Volume 8.4 fL (7.4-10.4); Monocytes # (auto) 0.4 uL; Neutrophils # (auto) 17.1 uL; Neutrophils % (auto) 92.3 % (37.0-80.0); Platelet Count (auto) 384 10^3/uL (140-450); Red Cell Distribution Width 17.3 % (11.6-16.0); White Blood Cell 18.6 10^3/uL (4.4-10.8)
[2016-06-06 04:23] LABS: Albumin 1.2 g/dL (3.4-5.0); BUN/Creatinine Ratio 43.6; Bilirubin, Total 0.4 mg/dL (0.2-1.0); Calcium 7.5 mg/dL (8.5-10.1); Magnesium 2.1 mg/dL (1.6-2.6); Phosphorus 2.2 mg/dL (2.6-4.90); Potassium 3.6 mmol/L (3.5-5.1); Total Protein 4.9 g/dL (6.4-8.2)
[2016-06-06] MEDS: GABAPENTIN 300 MG CAP PO SCH ×3 (06:00→22:05)
[2016-06-06] MEDS: MEROPENEM 1GM IVPB 100 ML IV SCH ×3 (06:09→22:05)
[2016-06-06] MEDS: FUROSEMIDE 40 MG/4 ML VIAL IV SCH ×2 (06:09→17:37)
[2016-06-06] MEDS: METOCLOPRAMIDE HCL 5MG/ml INJ 2ml VIAL IV SCH ×3 (06:10→22:05)
[2016-06-06] MEDS: ALBUTEROL SULF 2.5 MG/0.5ML(0.5%) NEB SOLN NEB SCH ×3 (06:35→18:43)
[2016-06-06] MEDS: IPRATROPIUM BROM 0.5 MG/2.5ML INH SOL NEB SCH ×3 (06:36→18:43)
[2016-06-06] MEDS: IBUPROFEN 100MG/5ML ORAL SUSP 100 MG/5 ML UD NG PRN ×2 (06:49→23:30)
[2016-06-06] MEDS: PRO-STAT 64 30ML NG SCH ×3 (08:00→17:37)
[2016-06-06] MEDS: fentaNYL Drip 2500mCg/250mlNS 250 ML IV SCH ×2 (09:03→20:27)
[2016-06-06] MEDS: SODIUM CHLOR 0.9% PF (SALINE LOCK) 10ML VIAL IV SCH ×2 (09:28→22:05)
[2016-06-06] MEDS: DILTIAZEM HCL 180MG ER CAP PO SCH (09:28)
[2016-06-06] MEDS: ENOXAPARIN SOD 40 MG/0.4 ML SYRINGE SC SCH (09:28)
[2016-06-06] MEDS: PANTOPRAZOLE SODIUM 40 MG/10 ML VIAL IV SCH (09:28)
[2016-06-06] MEDS: ASPirin 81 mg TAB PO SCH (09:28)
[2016-06-06] MEDS ORDERED: SODIUM PHOSPHATES 20 MEQ in SODIUM CHL 0.9% 100 ML IV ONE (10:00)
[2016-06-06] MEDS: MICAFUNGIN SODIUM 100 MG in SODIUM CHL 0.9% 100 ML IV SCH (10:31)
[2016-06-06] MEDS: VANCOMYCIN 750 MG in D5W 5% 250 ML IV SCH ×2 (11:01→23:11)
[2016-06-06] MEDS ORDERED: DOBUTamine 1000MCG/ML 250 ML IV SCH (15:15)
[2016-06-06] MEDS ORDERED: TPN PER PHARMACY IV NR ×10 (20:00)
[2016-06-06] MEDS: ENALAPRIL MALEATE 2.5 MG TAB GT SCH (22:04)
[2016-06-06] MEDS: CARVEDILOL 3.125 MG TAB GT SCH (22:04)
[2016-06-07] VITALS (107 sets, daily range): BP systolic 74–119; BP diastolic 30–70
[2016-06-07] MEDS: IPRATROPIUM BROM 0.5 MG/2.5ML INH SOL NEB SCH ×4 (01:17→18:26)
[2016-06-07] MEDS: ALBUTEROL SULF 2.5 MG/0.5ML(0.5%) NEB SOLN NEB SCH ×4 (01:18→18:26)
[2016-06-07 03:23] LABS: Hematocrit 29.9 % (36.0-46.0); Hemoglobin 9.5 g/dL (12.2-16.2); Mean Corpuscular Hemoglobin 28.1 pg (28.0-32.0); Mean Corpuscular Hgb Conc. 31.9 g/dL (32.0-36.0); Mean Platelet Volume 7.7 fL (7.4-10.4); Platelet Count (auto) 486 10^3/uL (140-450); SUSPECT VIEW TRANSMISSION; White Blood Cell 20.5 10^3/uL (4.4-10.8)
[2016-06-07 03:44] LABS: Albumin 1.1 g/dL (3.4-5.0); Bilirubin, Total 0.4 mg/dL (0.2-1.0); Calcium 7.6 mg/dL (8.5-10.1); Magnesium 2.2 mg/dL (1.6-2.6); Phosphorus 2.6 mg/dL (2.6-4.90); Potassium 3.3 mmol/L (3.5-5.1); Total Protein 4.8 g/dL (6.4-8.2)
[2016-06-07 03:47] LABS: Promyelocytes % 0; Reactive Lymphocytes 0
[2016-06-07 04:27] LABS: Metamyelocytes % 1; Myelocytes % 1
[2016-06-07 05:10] LABS: Platelet Estimate Increased
[2016-06-07] MEDS: FUROSEMIDE 40 MG/4 ML VIAL IV SCH ×2 (05:44→17:19)
[2016-06-07] MEDS: MEROPENEM 1GM IVPB 100 ML IV SCH ×3 (05:44→21:56)
[2016-06-07] MEDS: FREE WATER PO SCH ×4 (05:44→17:19)
[2016-06-07] MEDS: GABAPENTIN 300 MG CAP PO SCH ×3 (05:44→21:57)
[2016-06-07] MEDS: ACCU-CHEK COMFORT CURVE STRIP VI SCH ×4 (05:44→17:12)
[2016-06-07] MEDS: METOCLOPRAMIDE HCL 5MG/ml INJ 2ml VIAL IV SCH ×3 (05:44→21:56)
[2016-06-07] MEDS: InsuLIN REG 1unit/0.01ml Soln (100units/ml) SC SCH ×4 (05:45→17:07)
[2016-06-07] MEDS: PRO-STAT 64 30ML NG SCH ×3 (07:36→17:19)
[2016-06-07] MEDS: PROPOFOL 100 ML IV SCH ×4 (07:37→22:00)
[2016-06-07] MEDS: fentaNYL Drip 2500mCg/250mlNS 250 ML IV SCH ×2 (07:37→19:52)
[2016-06-07] MEDS ORDERED: PARoxetine 20 MG TAB ONE (08:47)
[2016-06-07] MEDS: CARVEDILOL 3.125 MG TAB GT SCH ×2 (09:12→21:57)
[2016-06-07] MEDS: SODIUM CHLOR 0.9% PF (SALINE LOCK) 10ML VIAL IV SCH ×2 (09:13→21:57)
[2016-06-07] MEDS: ENALAPRIL MALEATE 2.5 MG TAB GT SCH ×2 (09:13→21:58)
[2016-06-07] MEDS: ASPirin 81 mg TAB PO SCH (09:13)
[2016-06-07] MEDS: PANTOPRAZOLE SODIUM 40 MG/10 ML VIAL IV SCH (09:13)
[2016-06-07] MEDS: MICAFUNGIN SODIUM 100 MG in SODIUM CHL 0.9% 100 ML IV SCH (09:13)
[2016-06-07] MEDS: ENOXAPARIN SOD 40 MG/0.4 ML SYRINGE SC SCH (09:14)
[2016-06-07] MEDS: VANCOMYCIN 750 MG in D5W 5% 250 ML IV SCH ×2 (11:06→23:00)
[2016-06-07] MEDS: POTASSIUM CHL 20MEQ/100ML 100 ML IV SCH ×2 (11:06→12:35)
[2016-06-07] MEDS: DOPamine 1600MCG/ML 250 ML IV SCH (11:08)
[2016-06-07] MEDS ORDERED: SODIUM PHOSP 20MEQ(15MMOL) IN NS 100 ML IV ONE (12:00)
[2016-06-07] MEDS ORDERED: LEVOFLOXACIN 500MG 100 ML IV ONE (12:30)
[2016-06-07] MEDS: IBUPROFEN 100MG/5ML ORAL SUSP 100 MG/5 ML UD NG PRN (14:17)
[2016-06-07] MEDS: NOREPINEPHRINE BITARTRATE 250 ML IV SCH (16:23)
[2016-06-07] MEDS ORDERED: TPN PER PHARMACY IV NR ×11 (20:00)
[2016-06-08] VITALS (104 sets, daily range): BP systolic 93–143; BP diastolic 43–80
[2016-06-08] MEDS: FREE WATER PO SCH ×4 (00:06→17:56)
[2016-06-08] MEDS: ACCU-CHEK COMFORT CURVE STRIP VI SCH ×4 (00:06→17:56)
[2016-06-08] MEDS: InsuLIN REG 1unit/0.01ml Soln (100units/ml) SC SCH ×4 (00:11→17:21)
[2016-06-08] MEDS: PROPOFOL 100 ML IV SCH ×4 (05:00→19:45)
[2016-06-08 05:23] LABS: Hematocrit 34.9 % (36.0-46.0); Hemoglobin 11.3 g/dL (12.2-16.2); Mean Corpuscular Hemoglobin 28.2 pg (28.0-32.0); Mean Corpuscular Hgb Conc. 32.2 g/dL (32.0-36.0); Mean Corpuscular Volume 87.5 fL (80.0-100.0); Mean Platelet Volume 7.5 fL (7.4-10.4); Platelet Count (auto) 522 10^3/uL (140-450); Red Cell Distribution Width 17.7 % (11.6-16.0); SUSPECT VIEW TRANSMISSION; White Blood Cell 25.9 10^3/uL (4.4-10.8)
[2016-06-08 05:27] LABS: Promyelocytes % 0; Reactive Lymphocytes 0
[2016-06-08 05:44] LABS: BUN/Creatinine Ratio 41.4; Calcium 7.4 mg/dL (8.5-10.1); Magnesium 2.1 mg/dL (1.6-2.6); Potassium 4.9 mmol/L (3.5-5.1)
[2016-06-08 05:45] LABS: Metamyelocytes % 3; Myelocytes % 2
[2016-06-08 05:46] LABS: Bilirubin, Total 0.5 mg/dL (0.2-1.0); Hypersegmented Neutrophils Present; Platelet Estimate Increased; Tear Drop Cells FEW; Total Protein 5.2 g/dL (6.4-8.2)
[2016-06-08 05:47] LABS: Anisocytosis Slight; Ovalocytes FEW
[2016-06-08] MEDS: GABAPENTIN 300 MG CAP PO SCH ×3 (06:00→21:31)
[2016-06-08] MEDS: FUROSEMIDE 40 MG/4 ML VIAL IV SCH ×2 (06:03→17:42)
[2016-06-08] MEDS: METOCLOPRAMIDE HCL 5MG/ml INJ 2ml VIAL IV SCH ×3 (06:03→21:31)
[2016-06-08] MEDS: MEROPENEM 1GM IVPB 100 ML IV SCH ×3 (06:03→21:31)
[2016-06-08 06:06] LABS: Albumin 1.1 g/dL (3.4-5.0); Phosphorus 3.3 mg/dL (2.6-4.90)
[2016-06-08] MEDS: ALBUTEROL SULF 2.5 MG/0.5ML(0.5%) NEB SOLN NEB SCH ×3 (06:16→19:42)
[2016-06-08] MEDS: IPRATROPIUM BROM 0.5 MG/2.5ML INH SOL NEB SCH ×3 (06:16→19:42)
[2016-06-08] MEDS: DOPamine 1600MCG/ML 250 ML IV SCH (06:42)
[2016-06-08] MEDS: fentaNYL Drip 2500mCg/250mlNS 250 ML IV SCH ×2 (07:37→19:45)
[2016-06-08] MEDS: IBUPROFEN 100MG/5ML ORAL SUSP 100 MG/5 ML UD NG PRN (07:54)
[2016-06-08] MEDS: PRO-STAT 64 30ML NG SCH ×3 (08:00→17:56)
[2016-06-08] MEDS ORDERED: LIDOCAINE 2%HCL (LOCAL ANESTH.) INJ 20ML MDV ONE (08:32)
[2016-06-08] MEDS ORDERED: SODIUM CHLORIDE LOCK 20 ML ONE (08:32)
[2016-06-08] MEDS ORDERED: LIDOCAINE HCL 2% TOP JELLY 5ML TOP ONE (08:33)
[2016-06-08] MEDS ORDERED: EPINEPHrine HCL 1 MG/1 ML AMP ONE (08:33)
[2016-06-08] MEDS ORDERED: fentaNYL CITRATE 100 MCG/2 ML VL ONE (08:33)
[2016-06-08] MEDS ORDERED: MIDAZOLAM HCL 5 MG/ML-1ML VIAL ONE (08:33)
[2016-06-08] MEDS: CARVEDILOL 3.125 MG TAB GT SCH ×2 (09:57→21:31)
[2016-06-08] MEDS: LEVOFLOXACIN 500MG 100 ML IV SCH (09:58)
[2016-06-08] MEDS: ENOXAPARIN SOD 40 MG/0.4 ML SYRINGE SC SCH (09:58)
[2016-06-08] MEDS: ASPirin 81 mg TAB PO SCH (09:58)
[2016-06-08] MEDS: PANTOPRAZOLE SODIUM 40 MG/10 ML VIAL IV SCH (09:58)
[2016-06-08] MEDS ORDERED: BUMETANIDE (0.25 MG/ML) INJ 10ML IV ONE (10:00)
[2016-06-08] MEDS: SODIUM CHLOR 0.9% PF (SALINE LOCK) 10ML VIAL IV SCH ×2 (10:00→21:32)
[2016-06-08] MEDS: ENALAPRIL MALEATE 2.5 MG TAB GT SCH ×2 (10:00→21:32)
[2016-06-08] MEDS ORDERED: METOLAZONE 5 MG TAB PO ONE (10:00)
[2016-06-08] MEDS: MICAFUNGIN SODIUM 100 MG in SODIUM CHL 0.9% 100 ML IV SCH (10:50)
[2016-06-08] MEDS ORDERED: BUMETANIDE INJECTION 10 ML ONE (11:00)
[2016-06-08] MEDS: VANCOMYCIN 500 MG in D5W 5% 100 ML IV SCH ×3 (11:33→23:15)
[2016-06-08] MEDS: NOREPINEPHRINE BITARTRATE 250 ML IV SCH (16:15)
[2016-06-08] MEDS: ACETYLCYSTEINE 10 %(100MG/ML) SOL 4ML NEB SCH (19:42)
[2016-06-08] MEDS ORDERED: TPN PER PHARMACY IV NR ×11 (20:00)
[2016-06-09] VITALS (105 sets, daily range): BP systolic 98–165; BP diastolic 44–87
[2016-06-09] MEDS: ALBUTEROL SULF 2.5 MG/0.5ML(0.5%) NEB SOLN NEB SCH ×4 (00:04→18:54)
[2016-06-09] MEDS: ACETYLCYSTEINE 10 %(100MG/ML) SOL 4ML NEB SCH ×4 (00:04→18:54)
[2016-06-09] MEDS: IPRATROPIUM BROM 0.5 MG/2.5ML INH SOL NEB SCH ×4 (00:04→18:54)
[2016-06-09] MEDS: InsuLIN REG 1unit/0.01ml Soln (100units/ml) SC SCH ×4 (00:05→18:00)
[2016-06-09] MEDS: ACCU-CHEK COMFORT CURVE STRIP VI SCH ×4 (00:05→18:01)
[2016-06-09] MEDS: FREE WATER PO SCH ×4 (00:05→18:00)
[2016-06-09] MEDS: PROPOFOL 100 ML IV SCH ×4 (01:22→21:58)
[2016-06-09] MEDS: DOPamine 1600MCG/ML 250 ML IV SCH ×2 (02:24→22:06)
[2016-06-09] MEDS: IBUPROFEN 100MG/5ML ORAL SUSP 100 MG/5 ML UD NG PRN ×2 (02:44→18:02)
[2016-06-09 04:01] LABS: Basophils # (auto) 0.1 uL; Basophils % (auto) 0.4 % (0.0-2.0); Eosinophils # (auto) 0.1 uL; Eosinophils % (auto) 0.4 % (0.0-7.0); Hematocrit 31.5 % (36.0-46.0); Lymphocytes # (auto) 1.3 uL; Lymphocytes % (auto) 7.5 % (10.0-50.0); Mean Corpuscular Hemoglobin 27.6 pg (28.0-32.0); Mean Corpuscular Hgb Conc. 31.7 g/dL (32.0-36.0); Mean Corpuscular Volume 87.2 fL (80.0-100.0); Mean Platelet Volume 7.3 fL (7.4-10.4); Monocytes # (auto) 0.7 uL; Neutrophils # (auto) 15.3 uL; Neutrophils % (auto) 87.7 % (37.0-80.0); Platelet Count (auto) 533 10^3/uL (140-450); Red Cell Distribution Width 17.5 % (11.6-16.0); SUSPECT VIEW TRANSMISSION; White Blood Cell 17.5 10^3/uL (4.4-10.8)
[2016-06-09 04:32] LABS: Phosphorus 3.2 mg/dL (2.6-4.90)
[2016-06-09] MEDS: FUROSEMIDE 40 MG/4 ML VIAL IV SCH ×2 (05:53→18:00)
[2016-06-09] MEDS: MEROPENEM 1GM IVPB 100 ML IV SCH ×3 (05:53→20:35)
[2016-06-09] MEDS: GABAPENTIN 300 MG CAP PO SCH ×3 (05:53→21:11)
[2016-06-09] MEDS: METOCLOPRAMIDE HCL 5MG/ml INJ 2ml VIAL IV SCH ×3 (05:53→21:11)
[2016-06-09 06:07] LABS: Bilirubin, Total 0.4 mg/dL (0.2-1.0); Calcium 7.7 mg/dL (8.5-10.1); Potassium 4.1 mmol/L (3.5-5.1); Total Protein 4.9 g/dL (6.4-8.2)
[2016-06-09] MEDS: fentaNYL Drip 2500mCg/250mlNS 250 ML IV SCH ×2 (06:23→18:21)
[2016-06-09 06:30] LABS: B-Type Natriuretic Peptide 1626.57 pg/mL (0-100); Temperature: 22.5 C (20.0-25.0)
[2016-06-09 06:39] LABS: Magnesium 2.2 mg/dL (1.6-2.6)
[2016-06-09] MEDS: PRO-STAT 64 30ML NG SCH ×3 (08:00→18:00)
[2016-06-09] MEDS: MICAFUNGIN SODIUM 100 MG in SODIUM CHL 0.9% 100 ML IV SCH (10:00)
[2016-06-09] MEDS: SODIUM CHLOR 0.9% PF (SALINE LOCK) 10ML VIAL IV SCH ×2 (10:00→21:12)
[2016-06-09] MEDS: CARVEDILOL 3.125 MG TAB GT SCH ×2 (10:41→21:11)
[2016-06-09] MEDS: LEVOFLOXACIN 500MG 100 ML IV SCH (10:42)
[2016-06-09] MEDS: ENALAPRIL MALEATE 2.5 MG TAB GT SCH ×2 (10:42→21:11)
[2016-06-09] MEDS: METOLAZONE 5 MG TAB PO SCH (10:43)
[2016-06-09] MEDS: ASPirin 81 mg TAB PO SCH (10:43)
[2016-06-09] MEDS: PANTOPRAZOLE SODIUM 40 MG/10 ML VIAL IV SCH (10:43)
[2016-06-09] MEDS: ENOXAPARIN SOD 40 MG/0.4 ML SYRINGE SC SCH (10:44)
[2016-06-09] MEDS: VANCOMYCIN 500 MG in D5W 5% 100 ML IV SCH ×2 (12:15→23:15)
[2016-06-09] MEDS: NOREPINEPHRINE BITARTRATE 250 ML IV SCH (16:15)
[2016-06-09] MEDS ORDERED: TPN PER PHARMACY IV NR ×10 (20:00)
[2016-06-10] VITALS (107 sets, daily range): BP systolic 79–146; BP diastolic 36–78
[2016-06-10] MEDS: ACETYLCYSTEINE 10 %(100MG/ML) SOL 4ML NEB SCH ×4 (00:47→18:51)
[2016-06-10] MEDS: ALBUTEROL SULF 2.5 MG/0.5ML(0.5%) NEB SOLN NEB SCH ×4 (00:47→18:51)
[2016-06-10] MEDS: IPRATROPIUM BROM 0.5 MG/2.5ML INH SOL NEB SCH ×4 (00:47→18:51)
[2016-06-10 04:19] LABS: Mean Corpuscular Hemoglobin 27.5 pg (28.0-32.0); Mean Corpuscular Hgb Conc. 32.2 g/dL (32.0-36.0); Mean Corpuscular Volume 85.4 fL (80.0-100.0); Mean Platelet Volume 7.2 fL (7.4-10.4); Platelet Count (auto) 625 10^3/uL (140-450); Red Cell Distribution Width 17.9 % (11.6-16.0); SUSPECT VIEW TRANSMISSION; White Blood Cell 19.5 10^3/uL (4.4-10.8)
[2016-06-10 04:31] LABS: Promyelocytes % 0; Reactive Lymphocytes 0
[2016-06-10 04:37] LABS: Calcium 7.9 mg/dL (8.5-10.1); Magnesium 2.3 mg/dL (1.6-2.6); Potassium 3.7 mmol/L (3.5-5.1)
[2016-06-10 04:40] LABS: BUN/Creatinine Ratio 67.9
[2016-06-10 05:08] LABS: Bilirubin, Total 0.3 mg/dL (0.2-1.0); Total Protein 4.7 g/dL (6.4-8.2)
[2016-06-10 05:14] LABS: Anisocytosis Slight; Hypersegmented Neutrophils Present; Metamyelocytes % 2; Myelocytes % 4; Platelet Estimate Increased; Polychromasia Slight
[2016-06-10 05:15] LABS: Schistocytes FEW
[2016-06-10 05:20] LABS: Phosphorus 3.6 mg/dL (2.6-4.90)
[2016-06-10] MEDS: FREE WATER PO SCH ×5 (05:35→23:39)
[2016-06-10] MEDS: GABAPENTIN 300 MG CAP PO SCH ×3 (05:35→21:32)
[2016-06-10] MEDS: METOCLOPRAMIDE HCL 5MG/ml INJ 2ml VIAL IV SCH ×3 (05:35→21:32)
[2016-06-10] MEDS: FUROSEMIDE 40 MG/4 ML VIAL IV SCH ×2 (05:35→18:23)
[2016-06-10] MEDS: MEROPENEM 1GM IVPB 100 ML IV SCH ×3 (05:35→21:32)
[2016-06-10] MEDS: fentaNYL Drip 2500mCg/250mlNS 250 ML IV SCH ×2 (05:47→17:37)
[2016-06-10] MEDS: InsuLIN REG 1unit/0.01ml Soln (100units/ml) SC SCH ×5 (06:00→23:42)
[2016-06-10] MEDS: ACCU-CHEK COMFORT CURVE STRIP VI SCH ×5 (06:25→23:39)
[2016-06-10] MEDS: PRO-STAT 64 30ML NG SCH ×3 (08:00→17:44)
[2016-06-10] MEDS: ENALAPRIL MALEATE 2.5 MG TAB GT SCH ×2 (10:00→21:32)
[2016-06-10] MEDS: METOLAZONE 5 MG TAB PO SCH (10:00)
[2016-06-10] MEDS: CARVEDILOL 3.125 MG TAB GT SCH ×2 (10:00→21:32)
[2016-06-10] MEDS: IBUPROFEN 100MG/5ML ORAL SUSP 100 MG/5 ML UD NG PRN ×2 (10:36→23:40)
[2016-06-10] MEDS: MICAFUNGIN SODIUM 100 MG in SODIUM CHL 0.9% 100 ML IV SCH (10:36)
[2016-06-10] MEDS: ASPirin 81 mg TAB PO SCH (10:36)
[2016-06-10] MEDS: PANTOPRAZOLE SODIUM 40 MG/10 ML VIAL IV SCH (10:36)
[2016-06-10] MEDS: VANCOMYCIN 500 MG in D5W 5% 100 ML IV SCH ×2 (10:36→23:16)
[2016-06-10] MEDS: ENOXAPARIN SOD 40 MG/0.4 ML SYRINGE SC SCH (10:38)
[2016-06-10] MEDS: SODIUM CHLOR 0.9% PF (SALINE LOCK) 10ML VIAL IV SCH ×2 (10:38→21:32)
[2016-06-10] MEDS: LEVOFLOXACIN 500MG 100 ML IV SCH (10:42)
[2016-06-10] MEDS: NOREPINEPHRINE BITARTRATE 250 ML IV SCH (16:15)
[2016-06-10] MEDS: DOPamine 1600MCG/ML 250 ML IV SCH (17:39)
[2016-06-10] MEDS ORDERED: TPN PER PHARMACY IV NR ×10 (20:00)
[2016-06-10] MEDS: PROPOFOL 100 ML IV SCH (21:00)
[2016-06-11] VITALS (107 sets, daily range): BP systolic 84–137; BP diastolic 36–76
[2016-06-11] MEDS: PROPOFOL 100 ML IV SCH ×2 (03:15→21:00)
[2016-06-11 04:27] LABS: Hematocrit 30.7 % (36.0-46.0); Hemoglobin 9.6 g/dL (12.2-16.2); Mean Corpuscular Hemoglobin 27.2 pg (28.0-32.0); Mean Corpuscular Hgb Conc. 31.4 g/dL (32.0-36.0); Mean Corpuscular Volume 86.6 fL (80.0-100.0); Mean Platelet Volume 7.5 fL (7.4-10.4); Platelet Count (auto) 616 10^3/uL (140-450); Red Cell Distribution Width 18.7 % (11.6-16.0); SUSPECT VIEW TRANSMISSION; White Blood Cell 20.8 10^3/uL (4.4-10.8)
[2016-06-11 04:36] LABS: Potassium 4.1 mmol/L (3.5-5.1)
[2016-06-11 04:42] LABS: BUN/Creatinine Ratio 84.8; Calcium 7.8 mg/dL (8.5-10.1); Magnesium 2.4 mg/dL (1.6-2.6)
[2016-06-11 04:45] LABS: Bilirubin, Total 0.4 mg/dL (0.2-1.0); Total Protein 5.2 g/dL (6.4-8.2)
[2016-06-11] MEDS: fentaNYL Drip 2500mCg/250mlNS 250 ML IV SCH ×2 (05:00→15:30)
[2016-06-11] MEDS: NOREPINEPHRINE BITARTRATE 250 ML IV SCH ×2 (05:00→16:15)
[2016-06-11 05:05] LABS: Phosphorus 4.4 mg/dL (2.6-4.90)
[2016-06-11 05:22] LABS: Myelocytes % 0; Promyelocytes % 0; Reactive Lymphocytes 0
[2016-06-11] MEDS: METOCLOPRAMIDE HCL 5MG/ml INJ 2ml VIAL IV SCH ×3 (05:41→22:09)
[2016-06-11] MEDS: FUROSEMIDE 40 MG/4 ML VIAL IV SCH ×2 (05:41→17:47)
[2016-06-11] MEDS: InsuLIN REG 1unit/0.01ml Soln (100units/ml) SC SCH ×4 (05:42→23:34)
[2016-06-11] MEDS: ACCU-CHEK COMFORT CURVE STRIP VI SCH ×4 (05:42→23:34)
[2016-06-11] MEDS: GABAPENTIN 300 MG CAP PO SCH ×2 (05:42→14:12)
[2016-06-11] MEDS: FREE WATER PO SCH ×4 (05:42→23:34)
[2016-06-11] MEDS: MEROPENEM 1GM IVPB 100 ML IV SCH ×3 (05:42→22:09)
[2016-06-11] MEDS: IPRATROPIUM BROM 0.5 MG/2.5ML INH SOL NEB SCH ×4 (07:56→18:55)
[2016-06-11] MEDS: ALBUTEROL SULF 2.5 MG/0.5ML(0.5%) NEB SOLN NEB SCH ×4 (07:56→18:55)
[2016-06-11] MEDS: ACETYLCYSTEINE 10 %(100MG/ML) SOL 4ML NEB SCH ×3 (07:57→13:05)
[2016-06-11] MEDS: PRO-STAT 64 30ML NG SCH ×3 (08:00→17:47)
[2016-06-11 08:57] LABS: Metamyelocytes % 2
[2016-06-11 08:58] LABS: Anisocytosis Slight; Hypersegmented Neutrophils Present; Platelet Estimate Increased
[2016-06-11] MEDS: LEVOFLOXACIN 500MG 100 ML IV SCH (09:53)
[2016-06-11] MEDS: PANTOPRAZOLE SODIUM 40 MG/10 ML VIAL IV SCH (09:54)
[2016-06-11] MEDS: ENOXAPARIN SOD 40 MG/0.4 ML SYRINGE SC SCH (09:54)
[2016-06-11] MEDS: ASPirin 81 mg TAB PO SCH (09:54)
[2016-06-11] MEDS: SODIUM CHLOR 0.9% PF (SALINE LOCK) 10ML VIAL IV SCH ×2 (09:54→22:09)
[2016-06-11] MEDS: MICAFUNGIN SODIUM 100 MG in SODIUM CHL 0.9% 100 ML IV SCH (09:54)
[2016-06-11] MEDS: ENALAPRIL MALEATE 2.5 MG TAB GT SCH (09:55)
[2016-06-11] MEDS: CARVEDILOL 3.125 MG TAB GT SCH (09:55)
[2016-06-11] MEDS: METOLAZONE 5 MG TAB PO SCH (09:55)
[2016-06-11] MEDS: IBUPROFEN 100MG/5ML ORAL SUSP 100 MG/5 ML UD NG PRN ×2 (09:58→17:58)
[2016-06-11] MEDS: VANCOMYCIN 500 MG in D5W 5% 100 ML IV SCH ×2 (12:14→22:50)
[2016-06-11] MEDS: DOPamine 1600MCG/ML 250 ML IV SCH (13:30)
[2016-06-11] MEDS ORDERED: PROMETHAZINE HCL 25 MG/ML 1ML IV PRN (14:45)
[2016-06-11] MEDS ORDERED: MORPHINE SULF INJ 2 MG/ML SYRINGE 1ML IV PRN (14:45)
[2016-06-11] MEDS ORDERED: VANCOMYCIN PER PHARMACY 0 MG IV SCH (14:45)
[2016-06-11] MEDS ORDERED: fentaNYL Drip 2500mCg/250mlNS 250 ML IV ONE (15:29)
[2016-06-11] MEDS ORDERED: TPN PER PHARMACY IV NR ×8 (20:00)
[2016-06-12] VITALS (108 sets, daily range): BP systolic 82–145; BP diastolic 41–83
[2016-06-12] MEDS: IBUPROFEN 100MG/5ML ORAL SUSP 100 MG/5 ML UD NG PRN ×2 (00:52→13:25)
[2016-06-12] MEDS: PROPOFOL 100 ML IV SCH ×5 (03:15→17:55)
[2016-06-12 04:11] LABS: Basophils # (auto) 0 uL; Basophils % (auto) 0.1 % (0.0-2.0); DEFINITIVE VIEW TRANSMISSION; Eosinophils # (auto) 0 uL; Hematocrit 29.5 % (36.0-46.0); Hemoglobin 9.3 g/dL (12.2-16.2); Lymphocytes # (auto) 1.5 uL; Lymphocytes % (auto) 8.1 % (10.0-50.0); Mean Corpuscular Hemoglobin 27.1 pg (28.0-32.0); Mean Corpuscular Hgb Conc. 31.4 g/dL (32.0-36.0); Mean Corpuscular Volume 86.5 fL (80.0-100.0); Mean Platelet Volume 7.4 fL (7.4-10.4); Monocytes # (auto) 0.9 uL; Monocytes % (auto) 4.8 % (0.0-12.0); Neutrophils # (auto) 15.7 uL; Platelet Count (auto) 600 10^3/uL (140-450); Red Cell Distribution Width 19.1 % (11.6-16.0); SUSPECT VIEW TRANSMISSION
[2016-06-12 04:13] LABS: Albumin 1.1 g/dL (3.4-5.0); BUN/Creatinine Ratio 90.7; Bilirubin, Total 0.3 mg/dL (0.2-1.0); Calcium 8.2 mg/dL (8.5-10.1); Magnesium 2.4 mg/dL (1.6-2.6); Phosphorus 4.2 mg/dL (2.6-4.90); Potassium 4.2 mmol/L (3.5-5.1)
[2016-06-12] MEDS: FUROSEMIDE 40 MG/4 ML VIAL IV SCH ×2 (05:30→17:43)
[2016-06-12] MEDS: FREE WATER PO SCH ×3 (05:30→17:44)
[2016-06-12] MEDS: MEROPENEM 1GM IVPB 100 ML IV SCH ×3 (05:30→22:00)
[2016-06-12] MEDS: METOCLOPRAMIDE HCL 5MG/ml INJ 2ml VIAL IV SCH ×3 (05:30→22:30)
[2016-06-12] MEDS: InsuLIN REG 1unit/0.01ml Soln (100units/ml) SC SCH ×3 (05:31→18:00)
[2016-06-12] MEDS: ACCU-CHEK COMFORT CURVE STRIP VI SCH ×3 (05:31→17:47)
[2016-06-12] MEDS: ALBUTEROL SULF 2.5 MG/0.5ML(0.5%) NEB SOLN NEB SCH ×3 (06:58→18:37)
[2016-06-12] MEDS: IPRATROPIUM BROM 0.5 MG/2.5ML INH SOL NEB SCH ×3 (06:59→18:37)
[2016-06-12] MEDS: ENOXAPARIN SOD 40 MG/0.4 ML SYRINGE SC SCH (09:29)
[2016-06-12] MEDS: PANTOPRAZOLE SODIUM 40 MG/10 ML VIAL IV SCH (09:29)
[2016-06-12] MEDS: ASPirin 81 mg TAB PO SCH (09:30)
[2016-06-12] MEDS: SODIUM CHLOR 0.9% PF (SALINE LOCK) 10ML VIAL IV SCH ×2 (09:30→22:00)
[2016-06-12] MEDS: METOLAZONE 5 MG TAB PO SCH (09:34)
[2016-06-12] MEDS: PRO-STAT 64 30ML NG SCH ×3 (09:41→17:55)
[2016-06-12] MEDS: MICAFUNGIN SODIUM 100 MG in SODIUM CHL 0.9% 100 ML IV SCH (10:08)
[2016-06-12] MEDS: DIGOXIN (250MCG/ML) 2 ML AMPULE IV SCH ×3 (10:30→22:32)
[2016-06-12] MEDS: VANCOMYCIN 500 MG in D5W 5% 100 ML IV SCH ×2 (11:21→22:31)
[2016-06-12] MEDS ORDERED: fentaNYL Drip 2500mCg/250mlNS 250 ML IV SCH (11:25)
[2016-06-12] MEDS: fentaNYL Drip 2500mCg/250mlNS 250 ML IV SCH ×2 (13:30→22:38)
[2016-06-12] MEDS: NOREPINEPHRINE BITARTRATE 250 ML IV SCH (16:15)
[2016-06-12] MEDS: MIDAZOLAM HCL 1MG/1ML-2 ML VIAL IV PRN (18:38)
[2016-06-12] MEDS ORDERED: HYDROmorphone HCL 2 MG/ML VL IV PRN (19:45)
[2016-06-12] MEDS ORDERED: TPN PER PHARMACY IV NR ×7 (20:00)
[2016-06-13] VITALS (106 sets, daily range): BP systolic 96–158; BP diastolic 44–83
[2016-06-13] MEDS: IBUPROFEN 100MG/5ML ORAL SUSP 100 MG/5 ML UD NG PRN ×2 (01:25→17:13)
[2016-06-13 03:51] LABS: Hematocrit 28.4 % (36.0-46.0); Mean Corpuscular Hemoglobin 27.2 pg (28.0-32.0); Mean Corpuscular Hgb Conc. 31.8 g/dL (32.0-36.0); Mean Corpuscular Volume 85.6 fL (80.0-100.0); Mean Platelet Volume 7.4 fL (7.4-10.4); Platelet Count (auto) 621 10^3/uL (140-450); Red Cell Distribution Width 17.6 % (11.6-16.0); SUSPECT VIEW TRANSMISSION; White Blood Cell 16.3 10^3/uL (4.4-10.8)
[2016-06-13 04:02] LABS: Promyelocytes % 0; Reactive Lymphocytes 0
[2016-06-13 04:19] LABS: Albumin 1.1 g/dL (3.4-5.0); BUN/Creatinine Ratio 117.1; Bilirubin, Total 0.4 mg/dL (0.2-1.0); Calcium 8.2 mg/dL (8.5-10.1); Magnesium 2.2 mg/dL (1.6-2.6); Phosphorus 3.2 mg/dL (2.6-4.90); Potassium 3.7 mmol/L (3.5-5.1)
[2016-06-13 04:21] LABS: INR 1.04 (0.9-1.15); Partial Thromboplastin Time 28.8 sec (22.64-33.71); Prothrombin Time 10.7 sec (9.37-12.3)
[2016-06-13 05:30] LABS: Hypersegmented Neutrophils Present; Metamyelocytes % 3; Myelocytes % 3; Platelet Estimate Increased
[2016-06-13 05:31] LABS: Anisocytosis Slight
[2016-06-13] MEDS: InsuLIN REG 1unit/0.01ml Soln (100units/ml) SC SCH ×4 (06:00→18:30)
[2016-06-13] MEDS: FUROSEMIDE 40 MG/4 ML VIAL IV SCH (06:00)
[2016-06-13] MEDS: METOCLOPRAMIDE HCL 5MG/ml INJ 2ml VIAL IV SCH ×3 (06:00→21:25)
[2016-06-13] MEDS: MEROPENEM 1GM IVPB 100 ML IV SCH ×3 (06:00→20:08)
[2016-06-13] MEDS: ACCU-CHEK COMFORT CURVE STRIP VI SCH ×4 (06:00→17:19)
[2016-06-13] MEDS: FREE WATER PO SCH ×4 (06:00→17:19)
[2016-06-13] MEDS: PRO-STAT 64 30ML NG SCH ×3 (07:57→17:19)
[2016-06-13] MEDS: PANTOPRAZOLE SODIUM 40 MG/10 ML VIAL IV SCH (09:39)
[2016-06-13] MEDS: MICAFUNGIN SODIUM 100 MG in SODIUM CHL 0.9% 100 ML IV SCH (09:39)
[2016-06-13] MEDS: SODIUM CHLOR 0.9% PF (SALINE LOCK) 10ML VIAL IV SCH ×2 (09:39→21:26)
[2016-06-13] MEDS: ASPirin 81 mg TAB PO SCH (09:39)
[2016-06-13] MEDS: ENOXAPARIN SOD 40 MG/0.4 ML SYRINGE SC SCH (09:40)
[2016-06-13] MEDS: PROPOFOL 100 ML IV SCH (09:41)
[2016-06-13] MEDS ORDERED: DIGOXIN 0.25 MG TAB PO SCH (10:00)
[2016-06-13 10:46] LABS: B-Type Natriuretic Peptide 932.97 pg/mL (0-100)
[2016-06-13 10:47] LABS: Temperature: 22.5 C (20.0-25.0)
[2016-06-13] MEDS: MIDAZOLAM HCL 1MG/1ML-2 ML VIAL IV PRN (11:01)
[2016-06-13] MEDS: VANCOMYCIN 500 MG in D5W 5% 100 ML IV SCH ×2 (11:02→23:00)
[2016-06-13] MEDS: NOREPINEPHRINE BITARTRATE 250 ML IV SCH (17:07)
[2016-06-13] MEDS: ALBUTEROL SULF 2.5 MG/0.5ML(0.5%) NEB SOLN NEB SCH ×3 (18:56→19:01)
[2016-06-13] MEDS: IPRATROPIUM BROM 0.5 MG/2.5ML INH SOL NEB SCH ×3 (18:56→19:01)
[2016-06-13] MEDS ORDERED: TPN PER PHARMACY IV NR ×9 (20:00)
[2016-06-14] VITALS (98 sets, daily range): BP systolic 113–170; BP diastolic 47–87
[2016-06-14] MEDS: ACCU-CHEK COMFORT CURVE STRIP VI SCH ×5 (00:28→23:29)
[2016-06-14] MEDS: IPRATROPIUM BROM 0.5 MG/2.5ML INH SOL NEB SCH ×4 (00:34→19:15)
[2016-06-14] MEDS: ALBUTEROL SULF 2.5 MG/0.5ML(0.5%) NEB SOLN NEB SCH ×4 (00:34→19:15)
[2016-06-14] MEDS: PROPOFOL 100 ML IV SCH ×3 (02:33→22:43)
[2016-06-14 04:13] LABS: Basophils # (auto) 0.1 uL; Basophils % (auto) 0.4 % (0.0-2.0); Eosinophils # (auto) 0 uL; Hematocrit 29.7 % (36.0-46.0); Hemoglobin 9.4 g/dL (12.2-16.2); Lymphocytes # (auto) 1.5 uL; Lymphocytes % (auto) 10.6 % (10.0-50.0); Mean Corpuscular Hemoglobin 27.5 pg (28.0-32.0); Mean Corpuscular Hgb Conc. 31.8 g/dL (32.0-36.0); Mean Corpuscular Volume 86.5 fL (80.0-100.0); Mean Platelet Volume 7.6 fL (7.4-10.4); Monocytes # (auto) 1.2 uL; Monocytes % (auto) 8.6 % (0.0-12.0); Neutrophils # (auto) 11.5 uL; Neutrophils % (auto) 80.4 % (37.0-80.0); Platelet Count (auto) 709 10^3/uL (140-450); Red Cell Distribution Width 17.8 % (11.6-16.0); White Blood Cell 14.3 10^3/uL (4.4-10.8)
[2016-06-14 04:28] LABS: INR 1.01 (0.9-1.15); Partial Thromboplastin Time 28.2 sec (22.64-33.71); Prothrombin Time 10.4 sec (9.37-12.3)
[2016-06-14 05:04] LABS: Albumin 1.2 g/dL (3.4-5.0); Bilirubin, Total 0.4 mg/dL (0.2-1.0); Calcium 8.4 mg/dL (8.5-10.1); Magnesium 2.4 mg/dL (1.6-2.6); Phosphorus 2.9 mg/dL (2.6-4.90); Potassium 3.9 mmol/L (3.5-5.1); Total Protein 5.2 g/dL (6.4-8.2)
[2016-06-14] MEDS: FREE WATER PO SCH ×5 (05:56→23:31)
[2016-06-14] MEDS: METOCLOPRAMIDE HCL 5MG/ml INJ 2ml VIAL IV SCH ×3 (06:00→21:37)
[2016-06-14] MEDS: InsuLIN REG 1unit/0.01ml Soln (100units/ml) SC SCH ×5 (06:00→23:30)
[2016-06-14] MEDS: MEROPENEM 1GM IVPB 100 ML IV SCH ×3 (06:00→21:37)
[2016-06-14] MEDS: PRO-STAT 64 30ML NG SCH ×3 (08:00→16:14)
[2016-06-14] MEDS: ENOXAPARIN SOD 40 MG/0.4 ML SYRINGE SC SCH (10:00)
[2016-06-14] MEDS: ASPirin 81 mg TAB PO SCH (10:00)
[2016-06-14] MEDS: FUROSEMIDE 40 MG/4 ML VIAL IV SCH (10:09)
[2016-06-14] MEDS: PANTOPRAZOLE SODIUM 40 MG/10 ML VIAL IV SCH (10:09)
[2016-06-14] MEDS: MICAFUNGIN SODIUM 100 MG in SODIUM CHL 0.9% 100 ML IV SCH (10:09)
[2016-06-14] MEDS: CARVEDILOL 3.125 MG TAB PO SCH ×2 (10:10→21:37)
[2016-06-14] MEDS: SODIUM CHLOR 0.9% PF (SALINE LOCK) 10ML VIAL IV SCH ×2 (10:23→21:37)
[2016-06-14] MEDS ORDERED: HYDROmorphone HCL 2 MG/ML VL ONE ×2 (10:48→10:57)
[2016-06-14] MEDS ORDERED: MIDAZOLAM HCL 1MG/1ML-2 ML VIAL ONE ×2 (10:51→10:57)
[2016-06-14] MEDS ORDERED: fentaNYL CITRATE 100 MCG/2 ML VL ONE ×3 (10:51→11:08)
[2016-06-14] MEDS ORDERED: DEXAMETHASONE SOD PHOS 10MG/1ML VIAL INJ ONE (11:07)
[2016-06-14] MEDS ORDERED: ALBUTEROL SULFATE 90 MCG MDI IN ONE (12:02)
[2016-06-14] MEDS ORDERED: FUROSEMIDE 20 MG/2 ML VIAL ONE (12:06)
[2016-06-14] MEDS ORDERED: ALBUMIN 5% 250 ML IV ONE (12:11)
[2016-06-14] MEDS ORDERED: ALBUTEROL SULF 2.5 MG/0.5ML(0.5%) NEB SOLN NEB ONE (12:15)
[2016-06-14] MEDS ORDERED: IPRATROPIUM BROM 0.5 MG/2.5ML INH SOL NEB ONE (12:15)
[2016-06-14] MEDS: VANCOMYCIN 750 MG in D5W 5% 250 ML IV SCH ×2 (13:38→23:31)
[2016-06-14] MEDS: fentaNYL Drip 2500mCg/250mlNS 250 ML IV SCH ×2 (15:30→22:43)
[2016-06-14] MEDS: NOREPINEPHRINE BITARTRATE 250 ML IV SCH (16:15)
[2016-06-14] MEDS: MIDAZOLAM HCL 1MG/1ML-2 ML VIAL IV PRN (18:17)
[2016-06-14] MEDS ORDERED: TPN PER PHARMACY IV NR ×7 (20:00)
[2016-06-14] MEDS ORDERED: FUROSEMIDE 40 MG/4 ML VIAL IV ONE (20:00)
[2016-06-14 21:37] LABS: B-Type Natriuretic Peptide 964.32 pg/mL (0-100); Temperature: 22.5 C (20.0-25.0)
[2016-06-14] MEDS: Fibersource Hn 1 Liter GT SCH (23:24)
[2016-06-15] VITALS (94 sets, daily range): BP systolic 86–157; BP diastolic 36–99
[2016-06-15] MEDS ORDERED: ALBUTEROL SULF 2.5 MG/0.5ML(0.5%) NEB SOLN NEB ONE (01:45)
[2016-06-15] MEDS ORDERED: ACETYLCYSTEINE 10 %(100MG/ML) SOL 4ML IN ONE (01:45)
[2016-06-15] MEDS: IPRATROPIUM BROM 0.5 MG/2.5ML INH SOL NEB SCH ×4 (02:44→18:40)
[2016-06-15] MEDS: ALBUTEROL SULF 2.5 MG/0.5ML(0.5%) NEB SOLN NEB SCH ×4 (02:44→18:40)
[2016-06-15 03:29] LABS: Basophils # (auto) 0 uL; Basophils % (auto) 0.2 % (0.0-2.0); Eosinophils # (auto) 0 uL; Hematocrit 28.1 % (36.0-46.0); Hemoglobin 9.1 g/dL (12.2-16.2); Lymphocytes # (auto) 2.1 uL; Lymphocytes % (auto) 13.5 % (10.0-50.0); Mean Corpuscular Hemoglobin 27.5 pg (28.0-32.0); Mean Corpuscular Hgb Conc. 32.3 g/dL (32.0-36.0); Mean Corpuscular Volume 85.3 fL (80.0-100.0); Mean Platelet Volume 7.1 fL (7.4-10.4); Monocytes # (auto) 1.5 uL; Monocytes % (auto) 9.2 % (0.0-12.0); Neutrophils # (auto) 12.1 uL; Neutrophils % (auto) 77.1 % (37.0-80.0); Platelet Count (auto) 690 10^3/uL (140-450); SUSPECT VIEW TRANSMISSION; White Blood Cell 15.7 10^3/uL (4.4-10.8)
[2016-06-15 04:01] LABS: Albumin 1.5 g/dL (3.4-5.0); BUN/Creatinine Ratio 123.1; Bilirubin, Total 0.6 mg/dL (0.2-1.0); Calcium 7.7 mg/dL (8.5-10.1); Phosphorus 2.2 mg/dL (2.6-4.90); Potassium 3.9 mmol/L (3.5-5.1); Total Protein 5.3 g/dL (6.4-8.2)
[2016-06-15] MEDS: MIDAZOLAM HCL 1MG/1ML-2 ML VIAL IV PRN (04:17)
[2016-06-15] MEDS ORDERED: MIDAZOLAM DRIP 100 mg/100mL NS 100 ML IV ONE (04:48)
[2016-06-15] MEDS: MIDAZOLAM DRIP 100 mg/100mL NS 100 ML IV SCH (05:08)
[2016-06-15] MEDS ORDERED: ACETYLCYSTEINE 10 %(100MG/ML) SOL 4ML NEB SCH (06:00)
[2016-06-15] MEDS: InsuLIN REG 1unit/0.01ml Soln (100units/ml) SC SCH ×4 (06:00→23:46)
[2016-06-15] MEDS: FREE WATER PO SCH ×5 (06:00→23:46)
[2016-06-15] MEDS: MEROPENEM 1GM IVPB 100 ML IV SCH ×3 (06:12→22:09)
[2016-06-15] MEDS: ACCU-CHEK COMFORT CURVE STRIP VI SCH ×4 (06:12→23:46)
[2016-06-15] MEDS: METOCLOPRAMIDE HCL 5MG/ml INJ 2ml VIAL IV SCH ×3 (06:12→22:08)
[2016-06-15] MEDS ORDERED: SODIUM PHOSP 20MEQ(15MMOL) IN NS 100 ML IV ONE (07:00)
[2016-06-15] MEDS: PRO-STAT 64 30ML NG SCH ×3 (08:00→18:00)
[2016-06-15] MEDS: ASPirin 81 mg TAB PO SCH (10:00)
[2016-06-15] MEDS: ENOXAPARIN SOD 40 MG/0.4 ML SYRINGE SC SCH (10:00)
[2016-06-15] MEDS: PANTOPRAZOLE SODIUM 40 MG/10 ML VIAL IV SCH (11:05)
[2016-06-15] MEDS: SODIUM CHLOR 0.9% PF (SALINE LOCK) 10ML VIAL IV SCH ×2 (11:05→22:09)
[2016-06-15] MEDS: FUROSEMIDE 40 MG/4 ML VIAL IV SCH (11:05)
[2016-06-15] MEDS: DIGOXIN 0.25 MG TAB PEG SCH (11:30)
[2016-06-15] MEDS: MICAFUNGIN SODIUM 100 MG in SODIUM CHL 0.9% 100 ML IV SCH (11:49)
[2016-06-15] MEDS: VANCOMYCIN 750 MG in D5W 5% 250 ML IV SCH ×2 (12:30→23:47)
[2016-06-15] MEDS: NOREPINEPHRINE BITARTRATE 250 ML IV SCH (15:12)
[2016-06-15] MEDS ORDERED: POTASSIUM PHOSPHATE IV NR ×7 (20:00)
[2016-06-15] MEDS ORDERED: MULTIPLE VITAMIN IV NR ×7 (20:00)
[2016-06-15] MEDS ORDERED: [UNRECOGNIZED DRUG - OTHER] IV NR ×7 (20:00)
[2016-06-15] MEDS ORDERED: TPN PER PHARMACY IV NR ×9 (20:00)
[2016-06-15] MEDS ORDERED: POTASSIUM CHLORIDE IV NR ×7 (20:00)
[2016-06-15] MEDS: Fibersource Hn 1 Liter GT SCH (20:03)
[2016-06-15] MEDS: PROPOFOL 100 ML IV SCH (22:00)
[2016-06-15] MEDS: fentaNYL Drip 2500mCg/250mlNS 250 ML IV SCH (23:47)
[2016-06-16] VITALS (106 sets, daily range): BP systolic 76–142; BP diastolic 45–86
[2016-06-16] MEDS: MIDAZOLAM DRIP 100 mg/100mL NS 100 ML IV SCH (04:00)
[2016-06-16 04:13] LABS: Basophils # (auto) 0.1 uL; Basophils % (auto) 0.7 % (0.0-2.0); DEFINITIVE VIEW TRANSMISSION; Eosinophils # (auto) 0 uL; Hematocrit 25.3 % (36.0-46.0); Hemoglobin 8.2 g/dL (12.2-16.2); Lymphocytes % (auto) 15.3 % (10.0-50.0); Mean Corpuscular Hemoglobin 27.8 pg (28.0-32.0); Mean Corpuscular Hgb Conc. 32.2 g/dL (32.0-36.0); Mean Corpuscular Volume 86.4 fL (80.0-100.0); Mean Platelet Volume 7.4 fL (7.4-10.4); Monocytes # (auto) 1.1 uL; Monocytes % (auto) 8.7 % (0.0-12.0); Neutrophils # (auto) 9.8 uL; Neutrophils % (auto) 75.3 % (37.0-80.0); Platelet Count (auto) 555 10^3/uL (140-450); Red Cell Distribution Width 17.6 % (11.6-16.0); White Blood Cell 13.1 10^3/uL (4.4-10.8)
[2016-06-16 04:23] LABS: Albumin 1.3 g/dL (3.4-5.0); BUN/Creatinine Ratio 134.6; Bilirubin, Total 0.4 mg/dL (0.2-1.0); Calcium 7.3 mg/dL (8.5-10.1); Magnesium 1.9 mg/dL (1.6-2.6); Phosphorus 4.9 mg/dL (2.6-4.90); Potassium 4.4 mmol/L (3.5-5.1); Total Protein 4.8 g/dL (6.4-8.2)
[2016-06-16] MEDS: PROPOFOL 100 ML IV SCH ×3 (04:30→21:50)
[2016-06-16] MEDS: ACCU-CHEK COMFORT CURVE STRIP VI SCH ×3 (05:40→17:57)
[2016-06-16] MEDS: InsuLIN REG 1unit/0.01ml Soln (100units/ml) SC SCH ×2 (05:40→11:24)
[2016-06-16] MEDS: FREE WATER PO SCH ×4 (05:40→23:29)
[2016-06-16] MEDS: MEROPENEM 1GM IVPB 100 ML IV SCH ×3 (05:41→21:31)
[2016-06-16] MEDS: METOCLOPRAMIDE HCL 5MG/ml INJ 2ml VIAL IV SCH ×3 (05:41→21:31)
[2016-06-16] MEDS: ALBUTEROL SULF 2.5 MG/0.5ML(0.5%) NEB SOLN NEB SCH ×3 (06:20→18:33)
[2016-06-16] MEDS: IPRATROPIUM BROM 0.5 MG/2.5ML INH SOL NEB SCH ×3 (06:20→18:33)
[2016-06-16] MEDS: PRO-STAT 64 30ML NG SCH ×3 (08:18→17:57)
[2016-06-16] MEDS: ASPirin 81 mg TAB PO SCH (09:34)
[2016-06-16] MEDS: FUROSEMIDE 40 MG/4 ML VIAL IV SCH (09:34)
[2016-06-16] MEDS: PANTOPRAZOLE SODIUM 40 MG/10 ML VIAL IV SCH (09:34)
[2016-06-16] MEDS: SODIUM CHLOR 0.9% PF (SALINE LOCK) 10ML VIAL IV SCH ×2 (09:34→21:31)
[2016-06-16] MEDS: ENOXAPARIN SOD 40 MG/0.4 ML SYRINGE SC SCH (09:35)
[2016-06-16] MEDS: DIGOXIN 0.25 MG TAB PEG SCH (09:37)
[2016-06-16] MEDS: MICAFUNGIN SODIUM 100 MG in SODIUM CHL 0.9% 100 ML IV SCH (09:39)
[2016-06-16] MEDS: VANCOMYCIN 750 MG in D5W 5% 250 ML IV SCH ×2 (11:20→23:29)
[2016-06-16] MEDS: fentaNYL Drip 2500mCg/250mlNS 250 ML IV SCH (11:30)
[2016-06-16] MEDS ORDERED: InsuLIN REG 1unit/0.01ml Soln (100units/ml) SC SCH (12:22)
[2016-06-16] MEDS: NOREPINEPHRINE BITARTRATE 250 ML IV SCH (15:48)
[2016-06-17] VITALS (97 sets, daily range): BP systolic 103–162; BP diastolic 51–77
[2016-06-17] MEDS: MIDAZOLAM DRIP 100 mg/100mL NS 100 ML IV SCH ×4 (00:20→22:33)
[2016-06-17] MEDS: PROPOFOL 100 ML IV SCH ×4 (01:57→20:59)
[2016-06-17 04:14] LABS: BUN/Creatinine Ratio 106.5; Calcium 7.7 mg/dL (8.5-10.1); Potassium 4.1 mmol/L (3.5-5.1)
[2016-06-17 04:31] LABS: Basophils # (auto) 0.1 uL; Basophils % (auto) 0.9 % (0.0-2.0); DEFINITIVE VIEW TRANSMISSION; Eosinophils # (auto) 0.5 uL; Eosinophils % (auto) 5.2 % (0.0-7.0); Hematocrit 23.6 % (36.0-46.0); Hemoglobin 7.8 g/dL (12.2-16.2); Lymphocytes # (auto) 1.9 uL; Lymphocytes % (auto) 18.6 % (10.0-50.0); Mean Corpuscular Hemoglobin 27.6 pg (28.0-32.0); Mean Corpuscular Hgb Conc. 32.1 g/dL (32.0-36.0); Mean Corpuscular Volume 85.9 fL (80.0-100.0); Mean Platelet Volume 7.7 fL (7.4-10.4); Monocytes # (auto) 0.8 uL; Monocytes % (auto) 7.6 % (0.0-12.0); Neutrophils % (auto) 67.7 % (37.0-80.0); Platelet Count (auto) 651 10^3/uL (140-450); Red Cell Distribution Width 17.2 % (11.6-16.0); White Blood Cell 10.3 10^3/uL (4.4-10.8)
[2016-06-17] MEDS: IPRATROPIUM BROM 0.5 MG/2.5ML INH SOL NEB SCH ×3 (06:15→18:07)
[2016-06-17] MEDS: ALBUTEROL SULF 2.5 MG/0.5ML(0.5%) NEB SOLN NEB SCH ×3 (06:15→18:07)
[2016-06-17] MEDS: MEROPENEM 1GM IVPB 100 ML IV SCH ×3 (06:28→22:22)
[2016-06-17] MEDS: METOCLOPRAMIDE HCL 5MG/ml INJ 2ml VIAL IV SCH ×3 (06:28→22:22)
[2016-06-17] MEDS: FREE WATER PO SCH ×3 (06:28→17:31)
[2016-06-17] MEDS: PRO-STAT 64 30ML NG SCH ×3 (08:00→17:31)
[2016-06-17] MEDS: SODIUM CHLOR 0.9% PF (SALINE LOCK) 10ML VIAL IV SCH ×2 (10:00→22:22)
[2016-06-17] MEDS: ENOXAPARIN SOD 40 MG/0.4 ML SYRINGE SC SCH (10:24)
[2016-06-17] MEDS: ASPirin 81 mg TAB PO SCH (10:24)
[2016-06-17] MEDS: FUROSEMIDE 40 MG/4 ML VIAL IV SCH (10:24)
[2016-06-17] MEDS: fentaNYL Drip 2500mCg/250mlNS 250 ML IV SCH ×2 (10:24→21:03)
[2016-06-17] MEDS: PANTOPRAZOLE SODIUM 40 MG/10 ML VIAL IV SCH (10:24)
[2016-06-17] MEDS: DIGOXIN 0.25 MG TAB PEG SCH (10:24)
[2016-06-17] MEDS: MICAFUNGIN SODIUM 100 MG in SODIUM CHL 0.9% 100 ML IV SCH (10:26)
[2016-06-17] MEDS: NOREPINEPHRINE BITARTRATE 250 ML IV SCH (12:30)
[2016-06-17] MEDS: VANCOMYCIN 750 MG in D5W 5% 250 ML IV SCH (12:34)
[2016-06-18] VITALS (101 sets, daily range): BP systolic 53–136; BP diastolic 33–91
[2016-06-18 03:47] LABS: Basophils # (auto) 0 uL; Basophils % (auto) 0.5 % (0.0-2.0); DEFINITIVE VIEW TRANSMISSION; Eosinophils # (auto) 0.4 uL; Hematocrit 25.6 % (36.0-46.0); Lymphocytes # (auto) 1.7 uL; Lymphocytes % (auto) 16.5 % (10.0-50.0); Mean Corpuscular Hemoglobin 27.2 pg (28.0-32.0); Mean Corpuscular Hgb Conc. 31.4 g/dL (32.0-36.0); Mean Corpuscular Volume 86.8 fL (80.0-100.0); Mean Platelet Volume 7.3 fL (7.4-10.4); Monocytes # (auto) 0.7 uL; Monocytes % (auto) 6.6 % (0.0-12.0); Neutrophils # (auto) 7.3 uL; Neutrophils % (auto) 72.4 % (37.0-80.0); Platelet Count (auto) 661 10^3/uL (140-450); White Blood Cell 10.1 10^3/uL (4.4-10.8)
[2016-06-18 04:14] LABS: Albumin 1.2 g/dL (3.4-5.0); Calcium 7.8 mg/dL (8.5-10.1); Potassium 4.2 mmol/L (3.5-5.1)
[2016-06-18 04:17] LABS: Bilirubin, Total 0.4 mg/dL (0.2-1.0)
[2016-06-18] MEDS: PROPOFOL 100 ML IV SCH ×3 (05:08→21:43)
[2016-06-18] MEDS: MIDAZOLAM DRIP 100 mg/100mL NS 100 ML IV SCH (05:08)
[2016-06-18] MEDS: MEROPENEM 1GM IVPB 100 ML IV SCH (05:35)
[2016-06-18] MEDS: ALBUTEROL SULF 2.5 MG/0.5ML(0.5%) NEB SOLN NEB SCH ×4 (05:44→18:29)
[2016-06-18] MEDS: IPRATROPIUM BROM 0.5 MG/2.5ML INH SOL NEB SCH ×4 (05:44→18:29)
[2016-06-18] MEDS: METOCLOPRAMIDE HCL 5MG/ml INJ 2ml VIAL IV SCH ×3 (06:00→21:42)
[2016-06-18] MEDS: FREE WATER PO SCH ×5 (06:00→23:44)
[2016-06-18] MEDS: PRO-STAT 64 30ML NG SCH ×3 (09:03→16:50)
[2016-06-18] MEDS ORDERED: IBUPROFEN 100MG/5ML ORAL SUSP 100 MG/5 ML UD NG PRN (09:45)
[2016-06-18] MEDS: ASPirin 81 mg TAB PO SCH (10:00)
[2016-06-18] MEDS ORDERED: MICAFUNGIN SODIUM 100 MG in SODIUM CHL 0.9% 100 ML IV SCH (10:00)
[2016-06-18] MEDS: PANTOPRAZOLE SODIUM 40 MG/10 ML VIAL IV SCH (11:58)
[2016-06-18] MEDS: SODIUM CHLOR 0.9% PF (SALINE LOCK) 10ML VIAL IV SCH ×2 (11:59→21:42)
[2016-06-18] MEDS: DIGOXIN 0.25 MG TAB PEG SCH (11:59)
[2016-06-18] MEDS: ENOXAPARIN SOD 40 MG/0.4 ML SYRINGE SC SCH (11:59)
[2016-06-18] MEDS: FLUCONAZOLE 200MG/100ML 100 ML IV SCH (12:00)
[2016-06-18] MEDS: cefTRIAXone 1GM/50ML D5W 50 ML IV SCH (12:00)
[2016-06-18] MEDS: NOREPINEPHRINE BITARTRATE 250 ML IV SCH (12:30)
[2016-06-18] MEDS: VANCOMYCIN 750 MG in D5W 5% 250 ML IV SCH ×4 (12:30→23:43)
[2016-06-18] MEDS ORDERED: MEROPENEM 1GM IVPB 100 ML IV SCH (14:00)
[2016-06-18] MEDS: FUROSEMIDE 40 MG/4 ML VIAL IV SCH (21:42)
[2016-06-18] MEDS: fentaNYL Drip 2500mCg/250mlNS 250 ML IV SCH (23:00)
[2016-06-19] VITALS (99 sets, daily range): BP systolic 86–163; BP diastolic 34–91
[2016-06-19] MEDS: IPRATROPIUM BROM 0.5 MG/2.5ML INH SOL NEB SCH ×4 (00:33→18:43)
[2016-06-19] MEDS: ALBUTEROL SULF 2.5 MG/0.5ML(0.5%) NEB SOLN NEB SCH ×4 (00:33→18:43)
[2016-06-19] MEDS: MIDAZOLAM DRIP 100 mg/100mL NS 100 ML IV SCH ×3 (02:00→17:30)
[2016-06-19 03:29] LABS: Basophils # (auto) 0.1 uL; Basophils % (auto) 0.6 % (0.0-2.0); Eosinophils # (auto) 0 uL; Hematocrit 27.5 % (36.0-46.0); Hemoglobin 8.9 g/dL (12.2-16.2); Lymphocytes # (auto) 2.1 uL; Lymphocytes % (auto) 19.2 % (10.0-50.0); Mean Corpuscular Hemoglobin 27.6 pg (28.0-32.0); Mean Corpuscular Hgb Conc. 32.3 g/dL (32.0-36.0); Mean Corpuscular Volume 85.2 fL (80.0-100.0); Mean Platelet Volume 7.6 fL (7.4-10.4); Monocytes # (auto) 0.7 uL; Monocytes % (auto) 6.5 % (0.0-12.0); Neutrophils # (auto) 7.9 uL; Neutrophils % (auto) 73.7 % (37.0-80.0); Platelet Count (auto) 665 10^3/uL (140-450); Red Cell Distribution Width 16.2 % (11.6-16.0); White Blood Cell 10.8 10^3/uL (4.4-10.8)
[2016-06-19 03:47] LABS: BUN/Creatinine Ratio 90.5; Calcium 7.6 mg/dL (8.5-10.1); Potassium 3.9 mmol/L (3.5-5.1)
[2016-06-19] MEDS: FREE WATER PO SCH ×3 (05:33→17:55)
[2016-06-19] MEDS: METOCLOPRAMIDE HCL 5MG/ml INJ 2ml VIAL IV SCH ×3 (05:33→21:59)
[2016-06-19] MEDS: PROPOFOL 100 ML IV SCH ×4 (06:00→23:12)
[2016-06-19] MEDS: PRO-STAT 64 30ML NG SCH ×3 (08:00→17:55)
[2016-06-19] MEDS: cefTRIAXone 1GM/50ML D5W 50 ML IV SCH (09:11)
[2016-06-19] MEDS: FUROSEMIDE 40 MG/4 ML VIAL IV SCH (09:59)
[2016-06-19] MEDS: ENOXAPARIN SOD 40 MG/0.4 ML SYRINGE SC SCH (09:59)
[2016-06-19] MEDS: PANTOPRAZOLE SODIUM 40 MG/10 ML VIAL IV SCH (09:59)
[2016-06-19] MEDS: fentaNYL Drip 2500mCg/250mlNS 250 ML IV SCH ×2 (10:00→21:59)
[2016-06-19] MEDS: ASPirin 81 mg TAB PO SCH (10:01)
[2016-06-19] MEDS: DIGOXIN 0.25 MG TAB PEG SCH (10:01)
[2016-06-19] MEDS: SODIUM CHLOR 0.9% PF (SALINE LOCK) 10ML VIAL IV SCH ×2 (10:01→22:01)
[2016-06-19] MEDS: NOREPINEPHRINE BITARTRATE 250 ML IV SCH (12:30)
[2016-06-19] MEDS: FLUCONAZOLE 200MG/100ML 100 ML IV SCH (13:00)
[2016-06-19] MEDS: VANCOMYCIN 750 MG in D5W 5% 250 ML IV SCH (13:22)
[2016-06-20] VITALS (101 sets, daily range): BP systolic 91–161; BP diastolic 42–82
[2016-06-20] MEDS: FREE WATER PO SCH ×4 (00:07→18:00)
[2016-06-20] MEDS: VANCOMYCIN 750 MG in D5W 5% 250 ML IV SCH ×3 (00:09→23:59)
[2016-06-20] MEDS: ALBUTEROL SULF 2.5 MG/0.5ML(0.5%) NEB SOLN NEB SCH ×4 (00:47→18:35)
[2016-06-20] MEDS: IPRATROPIUM BROM 0.5 MG/2.5ML INH SOL NEB SCH ×4 (00:47→18:35)
[2016-06-20] MEDS: MIDAZOLAM DRIP 100 mg/100mL NS 100 ML IV SCH ×3 (01:03→18:30)
[2016-06-20] MEDS: PROPOFOL 100 ML IV SCH ×5 (02:57→19:42)
[2016-06-20 05:36] LABS: Potassium 3.8 mmol/L (3.5-5.1)
[2016-06-20 05:39] LABS: BUN/Creatinine Ratio 70.8
[2016-06-20 06:00] LABS: Basophils # (auto) 0.1 uL; Basophils % (auto) 1.3 % (0.0-2.0); DEFINITIVE VIEW TRANSMISSION; Eosinophils # (auto) 0.5 uL; Eosinophils % (auto) 6.8 % (0.0-7.0); Hematocrit 38.3 % (36.0-46.0); Hemoglobin 8.1 g/dL (12.2-16.2); Lymphocytes # (auto) 1.5 uL; Lymphocytes % (auto) 19.3 % (10.0-50.0); Mean Corpuscular Hemoglobin 18.2 pg (28.0-32.0); Mean Corpuscular Hgb Conc. 21.1 g/dL (32.0-36.0); Mean Corpuscular Volume 86.4 fL (80.0-100.0); Mean Platelet Volume 8.3 fL (7.4-10.4); Monocytes # (auto) 0.6 uL; Monocytes % (auto) 7.6 % (0.0-12.0); Neutrophils # (auto) 5.2 uL; Red Cell Distribution Width 15.5 % (11.6-16.0); White Blood Cell 7.9 10^3/uL (4.4-10.8)
[2016-06-20] MEDS: METOCLOPRAMIDE HCL 5MG/ml INJ 2ml VIAL IV SCH ×3 (06:12→22:04)
[2016-06-20 06:28] LABS: Platelet Count (auto) 923 10^3/uL (140-450)
[2016-06-20] MEDS: PRO-STAT 64 30ML NG SCH ×3 (08:00→18:00)
[2016-06-20] MEDS: cefTRIAXone 1GM/50ML D5W 50 ML IV SCH (09:16)
[2016-06-20] MEDS: FUROSEMIDE 40 MG/4 ML VIAL IV SCH (10:12)
[2016-06-20] MEDS: PANTOPRAZOLE SODIUM 40 MG/10 ML VIAL IV SCH (10:12)
[2016-06-20] MEDS: SODIUM CHLOR 0.9% PF (SALINE LOCK) 10ML VIAL IV SCH ×2 (10:13→22:04)
[2016-06-20] MEDS: ENOXAPARIN SOD 40 MG/0.4 ML SYRINGE SC SCH (10:13)
[2016-06-20] MEDS: ASPirin 81 mg TAB PO SCH (10:13)
[2016-06-20] MEDS: DIGOXIN 0.25 MG TAB PEG SCH (10:13)
[2016-06-20] MEDS: FLUCONAZOLE 200MG/100ML 100 ML IV SCH (11:16)
[2016-06-20] MEDS: NOREPINEPHRINE BITARTRATE 250 ML IV SCH (12:30)
[2016-06-20] MEDS: fentaNYL Drip 2500mCg/250mlNS 250 ML IV SCH (21:59)
[2016-06-21] VITALS (65 sets, daily range): BP systolic 99–135; BP diastolic 46–70
[2016-06-21] MEDS: PROPOFOL 100 ML IV SCH ×4 (00:35→14:20)
[2016-06-21] MEDS: MIDAZOLAM DRIP 100 mg/100mL NS 100 ML IV SCH ×2 (01:41→11:28)
[2016-06-21] MEDS: FREE WATER PO SCH ×3 (06:01→12:22)
[2016-06-21] MEDS: METOCLOPRAMIDE HCL 5MG/ml INJ 2ml VIAL IV SCH (06:02)
[2016-06-21] MEDS: PRO-STAT 64 30ML NG SCH ×2 (08:00→12:22)
[2016-06-21] MEDS: IPRATROPIUM BROM 0.5 MG/2.5ML INH SOL NEB SCH ×3 (08:00→13:24)
[2016-06-21] MEDS: ALBUTEROL SULF 2.5 MG/0.5ML(0.5%) NEB SOLN NEB SCH ×3 (08:00→13:24)
[2016-06-21] MEDS: fentaNYL Drip 2500mCg/250mlNS 250 ML IV SCH (08:10)
[2016-06-21] MEDS: cefTRIAXone 1GM/50ML D5W 50 ML IV SCH (09:11)
[2016-06-21] MEDS: ASPirin 81 mg TAB PO SCH (10:18)
[2016-06-21] MEDS: SODIUM CHLOR 0.9% PF (SALINE LOCK) 10ML VIAL IV SCH (10:18)
[2016-06-21] MEDS: PANTOPRAZOLE SODIUM 40 MG/10 ML VIAL IV SCH (10:18)
[2016-06-21] MEDS: FUROSEMIDE 40 MG/4 ML VIAL IV SCH (10:18)
[2016-06-21] MEDS: DIGOXIN 0.25 MG TAB PEG SCH (10:18)
[2016-06-21] MEDS: ENOXAPARIN SOD 40 MG/0.4 ML SYRINGE SC SCH (10:19)
[2016-06-21] MEDS: FLUCONAZOLE 200MG/100ML 100 ML IV SCH (11:26)
[2016-06-21] MEDS: VANCOMYCIN 750 MG in D5W 5% 250 ML IV SCH (12:22)
== END 2016-06-21 15:32 | DRG 4 ==
LOC: ER 15:13 → OVERFLOW 15:14 → CENTRAL 05-28 02:06 → DOU IN ICU 05-31 15:56 → ICU WEST 06-01 02:41
PROVIDERS: ADMIT Nurse Practitioner; ATTEND Family Medicine
PROC: 02HV33Z Insertion of Infusion Device into Superior Vena Cava, Percutaneous Approach (ICD-10-PCS; 2016-05-31)
PROC: B5181ZA Fluoroscopy of Superior Vena Cava using Low Osmolar Contrast, Guidance (ICD-10-PCS; 2016-05-31)
PROC: 30233N1 Transfusion of Nonautologous Red Blood Cells into Peripheral Vein, Percutaneous Approach (ICD-10-PCS; 2016-06-04)
PROC: 0B9B8ZX Drainage of Left Lower Lobe Bronchus, Via Natural or Artificial Opening Endoscopic, Diagnostic (ICD-10-PCS; 2016-06-05)
PROC: 0B968ZX Drainage of Right Lower Lobe Bronchus, Via Natural or Artificial Opening Endoscopic, Diagnostic (ICD-10-PCS; 2016-06-05)
PROC: 5A1955Z Respiratory Ventilation, Greater than 96 Consecutive Hours (ICD-10-PCS; principal; 2016-06-06)
PROC: 0BH17EZ Insertion of Endotracheal Airway into Trachea, Via Natural or Artificial Opening (ICD-10-PCS; 2016-06-06)
PROC: 0BCB8ZZ Extirpation of Matter from Left Lower Lobe Bronchus, Via Natural or Artificial Opening Endoscopic (ICD-10-PCS; 2016-06-08)
PROC: 0BC68ZZ Extirpation of Matter from Right Lower Lobe Bronchus, Via Natural or Artificial Opening Endoscopic (ICD-10-PCS; 2016-06-08)
PROC: BB1 Imaging, Respiratory System, Fluoroscopy (ICD-10-PCS; 2016-06-08)
PROC: 0DH63UZ Insertion of Feeding Device into Stomach, Percutaneous Approach (ICD-10-PCS; 2016-06-14)
PROC: 0B113F4 Bypass Trachea to Cutaneous with Tracheostomy Device, Percutaneous Approach (ICD-10-PCS; 2016-06-18)
DX: A41.9 Sepsis, unspecified organism (principal); J18.9 Pneumonia, unspecified organism; G93.41 Metabolic encephalopathy; E43 Unspecified severe protein-calorie malnutrition; J96.00 Acute respiratory failure, unspecified whether with hypoxia or hypercapnia; I50.33 Acute on chronic diastolic (congestive) heart failure; E87.0 Hyperosmolality and hypernatremia; N13.30 Unspecified hydronephrosis; J81.1 Chronic pulmonary edema; E87.1 Hypo-osmolality and hyponatremia; G93.1 Anoxic brain damage, not elsewhere classified; I42.9 Cardiomyopathy, unspecified; Z99.11 Dependence on respirator [ventilator] status; E86.0 Dehydration; I10 Essential (primary) hypertension; W19.XXXA Unspecified fall, initial encounter; D89.9 Disorder involving the immune mechanism, unspecified; G89.29 Other chronic pain; E87.5 Hyperkalemia; I11.0 Hypertensive heart disease with heart failure; R65.20 Severe sepsis without septic shock; K29.70 Gastritis, unspecified, without bleeding; K58.9 Irritable bowel syndrome, unspecified; M85.80 Other specified disorders of bone density and structure, unspecified site; M16.11 Unilateral primary osteoarthritis, right hip; Z82.49 Family history of ischemic heart disease and other diseases of the circulatory system; Z85.3 Personal history of malignant neoplasm of breast; Z82.0 Family history of epilepsy and other diseases of the nervous system; Z83.3 Family history of diabetes mellitus; Z90.13 Acquired absence of bilateral breasts and nipples; Z88.6 Allergy status to analgesic agent; Z88.4 Allergy status to anesthetic agent; Z88.5 Allergy status to narcotic agent; Z88.8 Allergy status to other drugs, medicaments and biological substances; Z91.018 Allergy to other foods; Z91.09 Other allergy status, other than to drugs and biological substances; Z79.4 Long term (current) use of insulin
CPT/HCPCS: 36415; 36569; 36600; 70450; 71010; 71250; 73502; 74181; 76705; 80048; 80053; 80202; 81001; 82040; 82140; 82607; 82746; 82805; 82962; 83010; 83516; 83605; 83615; 83735; 83880; 84100; 84443; 84478; 84484; 85007; 85014; 85018; 85025; 85027; 85379; 85610; 85652; 85730; 86225; 86235; 86850; 86900; 86901; 86920; 87040; 87070; 87081; 87086; 87205; 93005; 93306; 93970; 94002; 94003; 94640; 94660; 94668; 95819; 96374; 97001; 97110; A4565; C9113; G0434; J0171; J0330; J0696; J1100; J1450; J1815; J1956; J2001; J2185; J2248; J2250; J2405; J2704; J3010; J3480; J3490; J7060; J7131